=== PATIENT | female | born 1940 | race Caucasian/White ===

== ENCOUNTER 2023-12-10 12:11 | Inpatient (IN) ==
--- NOTE | 2023-12-10 12:37 | DR.H&P ---
H&P History & Physical for Day of: H&P Date: 12/10/23 Chief Complaint Chief Complaint: AMS, WEAKNESS Allergies Allergies Allergy/AdvReac Type Severity Reaction Status Date / Time No Known Drug Allergies Allergy Verified 10/24/23 17:50 History of Present Illness History of Present Illness: PT IS 83 WF, DIRECT ADMIT FROM DR JACKSON OFFICE WITH AMS CONFIRMED WITH HOME HEALTH AND PHYSICAL THERAPY. PT HAD INCREASED WEAKNESS, EMS CALLED 8 TIMES THIS PAST WEEK FOR ASSISTANCE WITH FALLS AND PT REFUSED ER EVALUATION. PT HAD LABS LAST WEEK AND URINALYSIS OBTAINED WITH C ULTURE RESULTS NOT AVAILABLE ON ADMISSION. PT HAS BEEN ON PO ATBX FOR UTI. PT HAS PMH OF CRF, HTN, OA, MDD AND NEUROPATHY. PT ADMITTED FOR TREATMENT AND EVALUATION OF ACUTE ILLNESS. Past Medical History Past Medical History: Dementia, Diabetes, GERD, Hypertension and Sleep Apnea Past Surgical History Surgical History: Appendectomy, Cholecystectomy, Hysterectomy and Joint Replacement Medications Home Medications: Home Medications Medication Instructions Recorded Confirmed Type baclofen 10 mg tablet 10 mg PO BID 10/24/23 10/24/23 History chlorthalidone 25 mg tablet 25 mg PO QDAY 10/24/23 10/24/23 History gabapentin 100 mg capsule 100 mg PO BID 10/24/23 10/24/23 History gabapentin 300 mg capsule 300 mg PO QPM 10/24/23 10/24/23 History hydralazine 25 mg tablet 25 mg PO BID 10/24/23 10/24/23 History levothyroxine 175 mcg tablet 175 mcg PO QDAY 10/24/23 10/24/23 History metoprolol tartrate 25 mg tablet 25 mg PO BID 10/24/23 10/24/23 History nystatin 100,000 unit/gram topical topical QID 10/24/23 History powder (Nystop) oxybutynin chloride 15 mg 15 mg PO QPM 10/24/23 10/24/23 History tablet,extended release 24 hr oxycodone-acetaminophen 10 mg-325 1 tab PO TID PRN pain 10/24/23 10/24/23 History mg tablet pantoprazole 40 mg tablet,delayed 40 mg PO BID 10/24/23 10/24/23 History release pravastatin 40 mg tablet 40 mg PO QPM 10/24/23 10/24/23 History quetiapine 25 mg tablet 12.5 mg PO QPM 10/24/23 10/24/23 History rivastigmine tartrate 1.5 mg 1.5 mg PO BID 10/24/23 10/24/23 History capsule sucralfate 1 gram tablet 1 g PO BID 10/24/23 10/24/23 History venlafaxine 75 mg capsule,extended 75 mg PO QDAY 10/24/23 10/24/23 History release 24 hr Review of Systems Constitutional: Weakness Eyes: No Symptoms Reported ENT: No Symptoms Reported Respiratory: Shortness of Breath Cardiovascular: Edema Gastrointestinal: No Symptoms Reported Genitourinary: Frequency and Incontinence Musculoskeletal: Back Pain Skin: Bruising Neurological: Weakness and Confusion Oriented: Person Eyes: Normal Throat: Dry Respiratory: RLL Diminished and LLL Diminished Cardiovascular: Edema Auscultation: Bowel Sounds: Normal Palpation: Normal Tenderness: Normal Skin: Decreased Turgur and Bruising Psychiatric: Anxiety and Agitation Mood Description: Anxious Affect: Anxious Speech Pattern: Inappropriate and Delayed Assessment/Plan (1) AMS (altered mental status): Narrative Support Text: ADMIT, CT HEAD ON ADMISSION IV HYDRATION WITH STRICT I&OS IV ROCEPHIN VERIFY HOME MEDICATIONS BC , UC ON ADMISSION PRN RESP THERAPY VERIFY HOME MEDICATIONS Status: Acute (2) UTI (urinary tract infection): Status: Acute (3) Fall: Status: Acute (4) Hypertension: Status: Acute
--- NOTE | 2023-12-10 14:31 | CT ---
EXAM:BRAIN W/O CONHISTORY:CONFUSION, WEAKNESS;COMPARISON:No relevant prior studies were available for comparison at the time of interpretation..TECHNIQUE:CT images were obtained. Multiplanar reconstructions were created on a separate workstation and used during interpretation. All CT scans at this facility is dose modulation, iterative reconstruction, and/or weight-based dosing as appropriate to reduce radiation to levels as low as reasonably achievable (ALARA). Postprocessing details, radiation dose, and contrast dose (if applicable) are recorded in the patient's medical record.FINDINGS:Acute findings: There is no intracranial hemorrhage. No mass effect. No intra-axial or extra-axial fluid collection. There is no mass. No tentorial, uncal, or tonsillar herniation.Brain volume and white matter: There is diffuse cortical atrophy. There is hypoattenuation in the supratentorial white matter consistent with chronic microvascular ischemic disease.Ventricles: No hydrocephalusMidline structures: Pituitary gland and corpus callosum are normal.Posterior fossa and skull base: Cerebellum and posterior fossa are within normal limits. Basal cisterns are not effaced.Sinuses and mastoids: Paranasal sinuses and mastoid air cells are predominantly clear.Globes and Orbits: Bilateral lens implants. Globes are intact. Bony orbits are intact. Extraocular muscles and retrobulbar fat appear normal.Skull and soft tissues: No depressed skull fracture. Calvarium appears intact. No scalp injury is identified.IMPRESSION:1. No acute intracranial abnormalityTHIS IS AN ELECTRONICALLY VERIFIED FINAL REPORT12/10/2023 2:27 PM - Electronically signed by Héctor Todd MD
--- NOTE | 2023-12-10 14:55 | EKG ---
Test Reason : weakness, confusion Blood Pressure : */* mmHG Vent. Rate : 47 BPM Atrial Rate : 47 BPM P-R Int : 116 ms QRS Dur : 130 ms QT Int : 424 ms P-R-T Axes : 0 -46 104 degrees QTc Int : 375 ms Sinus bradycardia Left axis deviation Left ventricular hypertrophy with QRS widening and repolarization abnormality ( R in aVL , Carrillo pr oduct ) Cannot rule out Septal infarct , age undetermined Abnormal ECG No previous ECGs available Confirmed by Arben Mills MD ([id number]) on 12/13/2023 7:47:27 AM Referred By: Confirmed By: Arben Mills MD
[2023-12-10 14:57] VITALS: BMI 34.7
[2023-12-10] MEDS: NS 1,000 ML IV 1,000 ML IV SCH (15:25)
[2023-12-10] MEDS: ROCEPHIN VIAL 1 GRAM 1 G in NS 100 ML IV 100 ML IV SCH (15:25)
[2023-12-10 15:32] LABS: BASOPHILS # (AUTO) 0.1 X10^3/uL (0.0-0.1); BASOPHILS % (AUTO) 1.1 % (0.2-1.0); EOSINOPHILS # (AUTO) 0.3 x10^3/uL (0.0-0.2); EOSINOPHILS % (AUTO) 5.2 % (0.9-2.9); HEMATOCRIT 32.5 % (36.0-47.0); HEMOGLOBIN 10.5 g/dL (12.0-16.0); LYMPHOCYTES # (AUTO) 1.1 X10^3/uL (1.3-2.9); LYMPHOCYTES % (AUTO) 17.5 % (21.0-51.0); MEAN CORPUSCULAR HGB CONC 32.4 g/dL (33.0-35.0); MEAN CORPUSCULAR VOLUME 89.5 fL (80.0-100.0); MEAN PLATELET VOLUME 8.8 fL (7.4-11.0); MONOCYTES # (AUTO) 0.7 x10^3/uL (0.3-0.8); MONOCYTES % (AUTO) 11.6 % (0.0-13.0); NEUTROPHILS # (AUTO) 3.9 x10^3/uL (2.2-4.8); NEUTROPHILS % (AUTO) 64.6 % (42.0-75.0); PLATELET COUNT 246 X10^3/uL (150.0-450.0); RED BLOOD COUNT 3.63 X10^6/uL (3.5-5.4); RED CELL DISTRIBUTION WIDTH 14.4 % (11.6-16.5); WHITE BLOOD COUNT 6.1 X10^3/uL (3.6-10.0)
[2023-12-10 15:41] LABS: ALBUMIN 2.4 g/dL (3.4-5.0); CALCIUM 8.5 mg/dL (8.5-10.1); CARBON DIOXIDE 31.7 mmol/L (21-32); COR CA(FOR HYPOALB) 9.8 mg/dL (8.5-10.1); CREATININE 2.01 mg/dL (0.55-1.02); POTASSIUM 4.4 mmol/L (3.5-5.1); TOTAL PROTEIN 7.2 g/dL (6.4-8.2)
[2023-12-10 16:35] LABS: BILIRUBIN,URINE NEGATIVE (NEGATIVE); BLOOD/HEMOGLOBIN,URINE 4+ (NEGATIVE); GLUCOSE, URINE NEGATIVE (NEGATIVE); KETONES,URINE NEGATIVE (NEGATIVE); LEUKOCYTE ESTERASE ,URINE 3+ (NEGATIVE); NITRITES,URINE NEGATIVE (NEGATIVE); PROTEIN,URINE 2+ (NEGATIVE); UROBILINOGEN,URINE NORMAL (NORMAL)
[2023-12-10 16:50] LABS: COLOR,URINE YELLOW (YELLOW)
[2023-12-10 16:51] LABS: APPEARANCE,URINE HAZY (CLEAR); BACTERIA,URINE 4+ /HPF (NEGATIVE); RBC,URINE TNTC /HPF (0-3); SQUAMOUS EPITHELIAL CELL,UR FEW /HPF (NEGATIVE)
[2023-12-11 06:09] LABS: BASOPHILS % (AUTO) 0.8 % (0.2-1.0); EOSINOPHILS # (AUTO) 0.3 x10^3/uL (0.0-0.2); EOSINOPHILS % (AUTO) 5.3 % (0.9-2.9); HEMATOCRIT 30.3 % (36.0-47.0); HEMOGLOBIN 9.7 g/dL (12.0-16.0); LYMPHOCYTES # (AUTO) 0.9 X10^3/uL (1.3-2.9); LYMPHOCYTES % (AUTO) 16.8 % (21.0-51.0); MEAN CORPUSCULAR HEMOGLOBIN 28.9 pg (27.0-34.0); MEAN CORPUSCULAR HGB CONC 32.2 g/dL (33.0-35.0); MEAN CORPUSCULAR VOLUME 89.9 fL (80.0-100.0); MEAN PLATELET VOLUME 8.8 fL (7.4-11.0); MONOCYTES # (AUTO) 0.6 x10^3/uL (0.3-0.8); MONOCYTES % (AUTO) 11.6 % (0.0-13.0); NEUTROPHILS # (AUTO) 3.5 x10^3/uL (2.2-4.8); NEUTROPHILS % (AUTO) 65.5 % (42.0-75.0); PLATELET COUNT 201 X10^3/uL (150.0-450.0); RED BLOOD COUNT 3.37 X10^6/uL (3.5-5.4); RED CELL DISTRIBUTION WIDTH 14.3 % (11.6-16.5); WHITE BLOOD COUNT 5.3 X10^3/uL (3.6-10.0)
--- NOTE | 2023-12-11 06:21 | RAD ---
EXAM: CHEST, 1 VIEW HISTORY: weakness, sob on exertion; COMPARISON: None. FINDINGS: SUPPORT DEVICES: None. HEART/MEDIASTINUM: Moderate cardiomegaly with aortic calcification. LUNGS: Nonspecific bilateral interstitial prominence without an area of consolidation. No significan t pleural effusion. No pneumothorax. ADDITIONAL FINDINGS: None. IMPRESSION: 1. Moderate cardiomegaly. 2. Nonspecific bilateral interstitial prominence, favored to represent chronic lung disease. THIS IS AN ELECTRONICALLY VERIFIED FINAL REPORT 12/11/2023 6:18 AM - Electronically signed by Nikhil Mars MD
[2023-12-11 06:22] LABS: ALANINE AMINOTRANSFERASE 8 Units/L (12-78); ALBUMIN 2.2 g/dL (3.4-5.0); ALKALINE PHOSPHATASE 76 Units/L (46-116); ASPARTATE AMINO TRANSFERASE 12 Units/L (15-37); BLOOD UREA NITROGEN 67 mg/dL (7-18); CALCIUM 8.1 mg/dL (8.5-10.1); CHLORIDE 104 mmol/L (98-107); COR CA(FOR HYPOALB) 9.5 mg/dL (8.5-10.1); CREATININE 1.65 mg/dL (0.55-1.02); GLUCOSE 103 mg/dL (65-99); SODIUM 140 mmol/L (136-145); TOTAL PROTEIN 6.1 g/dL (6.4-8.2); eGFR NON BLACK RACES 32 (>60)
--- NOTE | 2023-12-11 11:12 | PCM.PROG ---
Progress Note Progress Note for Day of Date of Exam: 12/11/23 Subjective Subjective: Patient seen at bedside, no acute events overnight. She is feeling a lot better today. She is sitting up in the chair. She was admitted for recurrent falls, AMS and UTI. She was also noted to be bradycardia on admission, HR 40s, metoprolol tartare was held. Denies chest pain. She is currently on IV fluids and Rocephin. Labs/imaging reviewed -Hgb 9.7 BUN/Cr: 67/1.65 -Urine Cx pending -CT-brain: no acute process -CXR: chronic lung disease, moderate cardiomegaly Plan: continue hydration, replace electrolytes as needed. Continue IV Rocephin, follow urine Cx. Continue telemetry. Resume home medications, hold metoprolol tartrate. HR is in the 50s now. PT/OT as tolerated. Monitor AM labs/imaging. Fall precautions. Past Medical Family Social History Allergies: Allergies No Known Drug Allergies Allergy (Verified 12/10/23 14:27) dymaox Allergy (Uncoded 12/10/23 14:28) Vital Signs and I&O's Vital Signs: Vital Signs Temperature 97.8 F Temperature 98.5 F Temperature 98.5 F Pulse Rate [Apical] 46 Pulse Rate [Apical] 43 Pulse Rate [Apical] 43 Respiratory Rate 18 Respiratory Rate 18 Respiratory Rate 18 Blood Pressure [Right Arm] 135/57 Blood Pressure [Right Arm] 140/51 Blood Pressure [Right Arm] 140/51 O2 Sat by Pulse Oximetry 97 O2 Sat by Pulse Oximetry 100 O2 Sat by Pulse Oximetry 100 Intake and Output: Intake & Output 12/08/23 12/09/23 12/10/23 12/11/23 23:59 23:59 23:59 23:59 Intake Total 1440 / 1440 680 / 680 Output Total 0 / 0 Balance 1440 / 1440 680 / 680 Physical Exam Oriented: Person Eyes: Normal Throat: Normal Respiratory: Generalized and Diminished Cardiovascular: Edema Auscultation: Bowel Sounds: Normal Palpation: Normal Tenderness: Normal Skin: Decreased Turgur, Tender, Bruising (large bruise noted on lower back ) and Ecchymosis Psychiatric: Normal Mood Description: Calm Affect: Normal Speech Pattern: Clear and Appropriate Laboratory and Diagnostics 12/11/23 05:52 12/11/23 05:52 Labs: 12/10/23 16:00 Urine,Clean Catch Urine Culture - Preliminary Laboratory WBC 5.3 X10^3/uL (3.6-10.0) 12/11/23 05:52 RBC 3.37 X10^6/uL (3.5-5.4) L 12/11/23 05:52 Hgb 9.7 g/dL (12.0-16.0) L 12/11/23 05:52 Hct 30.3 % (36.0-47.0) L 12/11/23 05:52 MCV 89.9 fL (80.0-100.0) 12/11/23 05:52 MCH 28.9 pg (27.0-34.0) 12/11/23 05:52 MCHC 32.2 g/dL (33.0-35.0) L 12/11/23 05:52 RDW 14.3 % (11.6-16.5) 12/11/23 05:52 Plt Count 201 X10^3/uL (150.0-450.0) 12/11/23 05:52 MPV 8.8 fL (7.4-11.0) 12/11/23 05:52 Neut % (Auto) 65.5 % (42.0-75.0) 12/11/23 05:52 Lymph % (Auto) 16.8 % (21.0-51.0) L 12/11/23 05:52 [place] % (Auto) 11.6 % (0.0-13.0) 12/11/23 05:52 Eos % (Auto) 5.3 % (0.9-2.9) H 12/11/23 05:52 Baso % (Auto) 0.8 % (0.2-1.0) 12/11/23 05:52 Neut # (Auto) 3.5 x10^3/uL (2.2-4.8) 12/11/23 05:52 Lymph # (Auto) 0.9 X10^3/uL (1.3-2.9) L 12/11/23 05:52 [place] # (Auto) 0.6 x10^3/uL (0.3-0.8) 12/11/23 05:52 Eos # (Auto) 0.3 x10^3/uL (0.0-0.2) H 12/11/23 05:52 Baso # (Auto) 0.0 X10^3/uL (0.0-0.1) 12/11/23 05:52 Absolute Nucleated RBC 0.1 /100WBC 12/11/23 05:52 Sodium 140 mmol/L (136-145) 12/11/23 05:52 Corrected Sodium TNP 12/11/23 05:52 Potassium 5.0 mmol/L (3.5-5.1) 12/11/23 05:52 Chloride 104 mmol/L (98-107) 12/11/23 05:52 Carbon Dioxide 31.0 mmol/L (21-32) 12/11/23 05:52 BUN 67 mg/dL (7-18) H 12/11/23 05:52 Creatinine 1.65 mg/dL (0.55-1.02) H 12/11/23 05:52 Est GFR (MDRD) Af Amer 38 (>60) L 12/11/23 05:52 Est GFR (MDRD) Non-Af 32 (>60) L 12/11/23 05:52 Glucose 103 mg/dL (65-99) H 12/11/23 05:52 Calcium 8.1 mg/dL (8.5-10.1) L 12/11/23 05:52 Corrected Calcium 9.5 mg/dL (8.5-10.1) 12/11/23 05:52 Magnesium 3.0 mg/dL (2.0-2.9) H 12/10/23 14:59 Total Bilirubin 0.20 mg/dL (0.2-1.0) 12/11/23 05:52 AST 12 Units/L (15-37) L 12/11/23 05:52 ALT 8 Units/L (12-78) L 12/11/23 05:52 Alkaline Phosphatase 76 Units/L (46-116) 12/11/23 05:52 Creatine Kinase 35 Units/L (26-192) 12/10/23 14:59 Troponin I High Sens 16.0 ng/L (4.0-60.0) 12/10/23 14:59 Total Protein 6.1 g/dL (6.4-8.2) L 12/11/23 05:52 Albumin 2.2 g/dL (3.4-5.0) L 12/11/23 05:52 Globulin 3.9 g/dL (2.5-4.5) 12/11/23 05:52 Albumin/Globulin Ratio 0.6 Ratio (1.1-2.1) L 12/11/23 05:52 TSH 3rd Generation 1.929 uIU/mL (0.358-3.74) 12/10/23 16:40 Specimen Type Catherized urine 12/10/23 16:00 Urine Color Yellow (YELLOW) 12/10/23 16:00 Urine Appearance Hazy (CLEAR) 12/10/23 16:00 Urine pH 5.0 (5.0 - 8.0) 12/10/23 16:00 Ur Specific [place] 1.015 (1.000-1.030) 12/10/23 16:00 Urine Protein 2+ (NEGATIVE) 12/10/23 16:00 Urine Glucose (UA) Negative (NEGATIVE) 12/10/23 16:00 Urine Ketones Negative (NEGATIVE) 12/10/23 16:00 Urine Blood 4+ (NEGATIVE) 12/10/23 16:00 Urine Nitrite Negative (NEGATIVE) 12/10/23 16:00 Urine Bilirubin Negative (NEGATIVE) 12/10/23 16:00 Urine Urobilinogen Normal (NORMAL) 12/10/23 16:00 Ur Leukocyte Esterase 3+ (NEGATIVE) 12/10/23 16:00 Urine RBC Tntc /HPF (0-3) A 12/10/23 16:00 Urine WBC Tntc /HPF (0-5) A 12/10/23 16:00 Ur Squamous Epith Cells Few /HPF (NEGATIVE) 12/10/23 16:00 Urine Bacteria 4+ /HPF (NEGATIVE) 12/10/23 16:00 Ur Culture Indicated? Yes/culture set up 12/10/23 16:00 Plan (1) AMS (altered mental status): Status: Acute Qualifiers: Altered mental status type: unspecified Qualified Code(s): R41.82 - Altered mental status, unspecified (2) UTI (urinary tract infection): Status: Acute Qualifiers: Urinary tract infection type: acute cystitis Hematuria presence: without hematuria Qualified Code(s): N30.00 - Acute cystitis without hematuria (3) Bradycardia: Status: Acute (4) Fall: Status: Acute Qualifiers: Encounter type: subsequent encounter Qualified Code(s): W19.XXXD - Unspecified fall, subsequent encounter (5) Hypertension: Status: Acute Qualifiers: Hypertension type: primary hypertension Qualified Code(s): I10 - Essential (primary) hypertension (6) EUGENE (acute kidney injury): Status: Acute (7) Anemia: Status: Acute Qualifiers: Anemia type: unspecified type Qualified Code(s): D64.9 - Anemia, unspecified
[2023-12-11] MEDS: EXELON PO SCH (13:42)
[2023-12-11] MEDS: PERCOCET TAB 5/325 MG PO SCH (13:45)
[2023-12-11] MEDS ORDERED: PATIENT'S HOME MEDICATION (Oxycodone-Acetaminophen 10-325 mg tablet) PO SCH ×2 (14:00)
[2023-12-11] MEDS ORDERED: PEPCID TAB 20 MG PO SCH (21:00)
[2023-12-11] MEDS: NEURONTIN CAP 300 MG PO SCH (21:33)
[2023-12-11] MEDS: MYSOLINE PO SCH (21:33)
[2023-12-11] MEDS: PRAVACHOL PO SCH (21:33)
[2023-12-11] MEDS: SEROquel TAB 25 mg PO SCH (21:34)
[2023-12-12 05:09] LABS: BASOPHILS % (AUTO) 0.8 % (0.2-1.0); EOSINOPHILS # (AUTO) 0.3 x10^3/uL (0.0-0.2); EOSINOPHILS % (AUTO) 6.2 % (0.9-2.9); HEMATOCRIT 32.4 % (36.0-47.0); HEMOGLOBIN 10.2 g/dL (12.0-16.0); LYMPHOCYTES # (AUTO) 0.9 X10^3/uL (1.3-2.9); LYMPHOCYTES % (AUTO) 17.7 % (21.0-51.0); MEAN CORPUSCULAR HEMOGLOBIN 28.5 pg (27.0-34.0); MEAN CORPUSCULAR HGB CONC 31.6 g/dL (33.0-35.0); MEAN CORPUSCULAR VOLUME 90.3 fL (80.0-100.0); MEAN PLATELET VOLUME 8.7 fL (7.4-11.0); MONOCYTES # (AUTO) 0.7 x10^3/uL (0.3-0.8); MONOCYTES % (AUTO) 12.8 % (0.0-13.0); NEUTROPHILS # (AUTO) 3.3 x10^3/uL (2.2-4.8); NEUTROPHILS % (AUTO) 62.5 % (42.0-75.0); PLATELET COUNT 203 X10^3/uL (150.0-450.0); RED BLOOD COUNT 3.59 X10^6/uL (3.5-5.4); RED CELL DISTRIBUTION WIDTH 14.5 % (11.6-16.5); WHITE BLOOD COUNT 5.3 X10^3/uL (3.6-10.0)
[2023-12-12 05:26] LABS: ALANINE AMINOTRANSFERASE 8 Units/L (12-78); ALBUMIN 2.1 g/dL (3.4-5.0); ALKALINE PHOSPHATASE 99 Units/L (46-116); ASPARTATE AMINO TRANSFERASE 14 Units/L (15-37); BLOOD UREA NITROGEN 51 mg/dL (7-18); CALCIUM 8.3 mg/dL (8.5-10.1); CARBON DIOXIDE 30.5 mmol/L (21-32); CHLORIDE 106 mmol/L (98-107); COR CA(FOR HYPOALB) 9.8 mg/dL (8.5-10.1); CREATININE 1.33 mg/dL (0.55-1.02); GLUCOSE 101 mg/dL (65-99); POTASSIUM 4.4 mmol/L (3.5-5.1); SODIUM 141 mmol/L (136-145); TOTAL PROTEIN 6.8 g/dL (6.4-8.2); eGFR NON BLACK RACES 41 (>60)
[2023-12-12] MEDS: NORVASC TAB 10 MG PO SCH (09:01)
[2023-12-12] MEDS: EFFEXOR XR 75 MG CAP 24-HR PO SCH (09:02)
[2023-12-12] MEDS: PEPCID TAB 20 MG PO SCH (09:03)
[2023-12-12] MEDS: SYNTHROID 175 mcg TAB PO SCH (09:03)
--- NOTE | 2023-12-12 10:58 | PCM.PROG ---
Progress Note Progress Note for Day of Date of Exam: 12/12/23 Subjective Subjective: Patient seen at bedside, no acute events overnight. She is feeling better today. She is sitting up in the chair. She was admitted for recurrent falls, AMS and UTI. Urine culture shows E.coli. Patient's BP was elevated this morning. Labs/imaging reviewed -Hgb 10.2 BUN/Cr: 51/1.33 -Urine Cx E.coli -CT-brain: no acute process -CXR: chronic lung disease, moderate cardiomegaly Plan: continue hydration, replace electrolytes as needed. Continue IV Rocephin. Continue telemetry. Continue home medications, restart hydralazine. Hold metoprolol tartrate due to bradycardia. PT/OT as tolerated. Monitor AM labs/imaging. Fall precautions. Past Medical Family Social History Allergies: Allergies No Known Drug Allergies Allergy (Verified 12/10/23 14:27) dymaox Allergy (Uncoded 12/10/23 14:28) Vital Signs and I&O's Vital Signs: Vital Signs Temperature 97.4 F Temperature 97.5 F Pulse Rate [Apical] 45 Pulse Rate [Apical] 43 Respiratory Rate 18 Respiratory Rate 18 Respiratory Rate 18 Respiratory Rate 18 Blood Pressure [Right Arm] 165/85 Blood Pressure [Left Arm] 195/80 O2 Sat by Pulse Oximetry 100 O2 Sat by Pulse Oximetry 97 Intake and Output: Intake & Output 12/09/23 12/10/23 12/11/23 12/12/23 23:59 23:59 23:59 23:59 Intake Total 1440 / 1440 2018 562 / 562 Output Total 0 / 0 Balance 1440 / 1440 2018 562 / 562 Physical Exam Oriented: Person Eyes: Normal Throat: Normal Respiratory: Generalized and Diminished Cardiovascular: Edema Auscultation: Bowel Sounds: Normal Palpation: Normal Tenderness: Normal Skin: Decreased Turgur, Tender, Bruising (large bruise noted on lower back ) and Ecchymosis Psychiatric: Normal Mood Description: Calm Affect: Normal Speech Pattern: Clear and Appropriate Laboratory and Diagnostics 12/12/23 04:47 12/12/23 04:47 Labs: 12/10/23 15:10 Blood Blood Culture - Preliminary 12/10/23 14:59 Blood Blood Culture - Preliminary 12/10/23 16:00 Urine,Clean Catch Urine Culture - Final Escherichia Coli Laboratory WBC 5.3 X10^3/uL (3.6-10.0) 12/12/23 04:47 RBC 3.59 X10^6/uL (3.5-5.4) 12/12/23 04:47 Hgb 10.2 g/dL (12.0-16.0) L 12/12/23 04:47 Hct 32.4 % (36.0-47.0) L 12/12/23 04:47 MCV 90.3 fL (80.0-100.0) 12/12/23 04:47 MCH 28.5 pg (27.0-34.0) 12/12/23 04:47 MCHC 31.6 g/dL (33.0-35.0) L 12/12/23 04:47 RDW 14.5 % (11.6-16.5) 12/12/23 04:47 Plt Count 203 X10^3/uL (150.0-450.0) 12/12/23 04:47 MPV 8.7 fL (7.4-11.0) 12/12/23 04:47 Neut % (Auto) 62.5 % (42.0-75.0) 12/12/23 04:47 Lymph % (Auto) 17.7 % (21.0-51.0) L 12/12/23 04:47 [place] % (Auto) 12.8 % (0.0-13.0) 12/12/23 04:47 Eos % (Auto) 6.2 % (0.9-2.9) H 12/12/23 04:47 Baso % (Auto) 0.8 % (0.2-1.0) 12/12/23 04:47 Neut # (Auto) 3.3 x10^3/uL (2.2-4.8) 12/12/23 04:47 Lymph # (Auto) 0.9 X10^3/uL (1.3-2.9) L 12/12/23 04:47 [place] # (Auto) 0.7 x10^3/uL (0.3-0.8) 12/12/23 04:47 Eos # (Auto) 0.3 x10^3/uL (0.0-0.2) H 12/12/23 04:47 Baso # (Auto) 0.0 X10^3/uL (0.0-0.1) 12/12/23 04:47 Absolute Nucleated RBC 0.0 /100WBC 12/12/23 04:47 Sodium 141 mmol/L (136-145) 12/12/23 04:47 Corrected Sodium TNP 12/12/23 04:47 Potassium 4.4 mmol/L (3.5-5.1) 12/12/23 04:47 Chloride 106 mmol/L (98-107) 12/12/23 04:47 Carbon Dioxide 30.5 mmol/L (21-32) 12/12/23 04:47 BUN 51 mg/dL (7-18) H 12/12/23 04:47 Creatinine 1.33 mg/dL (0.55-1.02) H 12/12/23 04:47 Est GFR (MDRD) Af Amer 49 (>60) L 12/12/23 04:47 Est GFR (MDRD) Non-Af 41 (>60) L 12/12/23 04:47 Glucose 101 mg/dL (65-99) H 12/12/23 04:47 Calcium 8.3 mg/dL (8.5-10.1) L 12/12/23 04:47 Corrected Calcium 9.8 mg/dL (8.5-10.1) 12/12/23 04:47 Magnesium 2.8 mg/dL (2.0-2.9) 12/11/23 12:13 Total Bilirubin 0.10 mg/dL (0.2-1.0) L 12/12/23 04:47 AST 14 Units/L (15-37) L 12/12/23 04:47 ALT 8 Units/L (12-78) L 12/12/23 04:47 Alkaline Phosphatase 99 Units/L (46-116) 12/12/23 04:47 Creatine Kinase 35 Units/L (26-192) 12/10/23 14:59 Troponin I High Sens 16.0 ng/L (4.0-60.0) 12/10/23 14:59 Total Protein 6.8 g/dL (6.4-8.2) 12/12/23 04:47 Albumin 2.1 g/dL (3.4-5.0) L 12/12/23 04:47 Globulin 4.7 g/dL (2.5-4.5) H 12/12/23 04:47 Albumin/Globulin Ratio 0.4 Ratio (1.1-2.1) L 12/12/23 04:47 TSH 3rd Generation 1.929 uIU/mL (0.358-3.74) 12/10/23 16:40 Specimen Type Catherized urine 12/10/23 16:00 Urine Color Yellow (YELLOW) 12/10/23 16:00 Urine Appearance Hazy (CLEAR) 12/10/23 16:00 Urine pH 5.0 (5.0 - 8.0) 12/10/23 16:00 Ur Specific [place] 1.015 (1.000-1.030) 12/10/23 16:00 Urine Protein 2+ (NEGATIVE) 12/10/23 16:00 Urine Glucose (UA) Negative (NEGATIVE) 12/10/23 16:00 Urine Ketones Negative (NEGATIVE) 12/10/23 16:00 Urine Blood 4+ (NEGATIVE) 12/10/23 16:00 Urine Nitrite Negative (NEGATIVE) 12/10/23 16:00 Urine Bilirubin Negative (NEGATIVE) 12/10/23 16:00 Urine Urobilinogen Normal (NORMAL) 12/10/23 16:00 Ur Leukocyte Esterase 3+ (NEGATIVE) 12/10/23 16:00 Urine RBC Tntc /HPF (0-3) A 12/10/23 16:00 Urine WBC Tntc /HPF (0-5) A 12/10/23 16:00 Ur Squamous Epith Cells Few /HPF (NEGATIVE) 12/10/23 16:00 Urine Bacteria 4+ /HPF (NEGATIVE) 12/10/23 16:00 Ur Culture Indicated? Yes/culture set up 12/10/23 16:00 Plan (1) AMS (altered mental status): Status: Acute Qualifiers: Altered mental status type: unspecified Qualified Code(s): R41.82 - Altered mental status, unspecified (2) UTI (urinary tract infection): Status: Acute Qualifiers: Urinary tract infection type: acute cystitis Hematuria presence: without hematuria Qualified Code(s): N30.00 - Acute cystitis without hematuria (3) Bradycardia: Status: Acute (4) Fall: Status: Acute Qualifiers: Encounter type: subsequent encounter Qualified Code(s): W19.XXXD - Unspecified fall, subsequent encounter (5) Hypertension: Status: Acute Qualifiers: Hypertension type: primary hypertension Qualified Code(s): I10 - Essential (primary) hypertension (6) EUGENE (acute kidney injury): Status: Acute (7) Anemia: Status: Acute Qualifiers: Anemia type: unspecified type Qualified Code(s): D64.9 - Anemia, unspecified
[2023-12-12] MEDS: APRESOLINE TAB 25 MG PO SCH (11:05)
[2023-12-12] MEDS: COLACE CAP 100 MG PO SCH (21:09)
[2023-12-12] MEDS: MILK OF MAGNESIA PO SCH (21:10)
[2023-12-13 06:12] LABS: EOSINOPHILS # (AUTO) 0.3 x10^3/uL (0.0-0.2); EOSINOPHILS % (AUTO) 6.5 % (0.9-2.9); HEMATOCRIT 30.5 % (36.0-47.0); HEMOGLOBIN 9.7 g/dL (12.0-16.0); LYMPHOCYTES # (AUTO) 0.9 X10^3/uL (1.3-2.9); LYMPHOCYTES % (AUTO) 17.4 % (21.0-51.0); MEAN CORPUSCULAR HEMOGLOBIN 28.6 pg (27.0-34.0); MEAN CORPUSCULAR HGB CONC 31.8 g/dL (33.0-35.0); MEAN PLATELET VOLUME 8.7 fL (7.4-11.0); MONOCYTES # (AUTO) 0.6 x10^3/uL (0.3-0.8); MONOCYTES % (AUTO) 12.6 % (0.0-13.0); NEUTROPHILS # (AUTO) 3.1 x10^3/uL (2.2-4.8); NEUTROPHILS % (AUTO) 62.5 % (42.0-75.0); PLATELET COUNT 204 X10^3/uL (150.0-450.0); RED BLOOD COUNT 3.39 X10^6/uL (3.5-5.4); RED CELL DISTRIBUTION WIDTH 14.5 % (11.6-16.5); WHITE BLOOD COUNT 4.9 X10^3/uL (3.6-10.0)
[2023-12-13 06:45] LABS: ALANINE AMINOTRANSFERASE 7 Units/L (12-78); ALBUMIN 1.9 g/dL (3.4-5.0); ALKALINE PHOSPHATASE 80 Units/L (46-116); ASPARTATE AMINO TRANSFERASE 16 Units/L (15-37); BLOOD UREA NITROGEN 38 mg/dL (7-18); CALCIUM 8.3 mg/dL (8.5-10.1); CARBON DIOXIDE 27.8 mmol/L (21-32); CHLORIDE 110 mmol/L (98-107); CREATININE 1.16 mg/dL (0.55-1.02); GLUCOSE 87 mg/dL (65-99); POTASSIUM 4.8 mmol/L (3.5-5.1); SODIUM 144 mmol/L (136-145); TOTAL PROTEIN 6.3 g/dL (6.4-8.2); eGFR NON BLACK RACES 48 (>60)
[2023-12-13] MEDS: STERILE WATER IRRIGATION IR ONE (07:38)
[2023-12-13] MEDS: ZOFRAN INJ 4 MG VIAL IVP PRN (14:08)
--- NOTE | 2023-12-13 17:02 | CT ---
EXAM:ABDOMEN/PELVIS W/O CONHISTORY:ABD HEMATOMA;COMPARISON:NoneTECHNIQUE:Multip le CT axial images of the abdomen and pelvis were obtained without IV contrast. Coronal and sagittal images were reconstructed. Dose reduction techniques included Automated Exposure Control (AEC) and adjustment of mA and kV.FINDINGS:The patient has anasarca with generalized edema. This is manifested as increased density in the subcutaneous fat and the intra-abdominal fat. This is associated with very small right pleural effusion.There is a mass in the posterolateral right body wall near the lower ribs within the subcutaneous tissue. This measures about 10 x 4 x 3 cm. Hounsfield units measure between 10 and 15. The finding is nonspecific and could be seroma, old hematoma, or abscess.Cardiomegaly is present. Atherosclerotic calcification is present in the coronary arteries. Lung bases are clear.The liver is normal in size and configuration. Surgical clips are present in the gallbladder fossa from a cholecystectomy. The spleen is normal in size and shape.The adrenal glands are normal. The pancreas is normal.No abnormal calcifications are present in the kidneys, ureters, or urinary bladder. The kidneys have normal size and shape. There is no hydronephrosis or significant perirenal edema. The bladder is mostly contracted. It has no wall thickening or perivesical edema.The bowel is not dilated. There is no wall thickening in the bowel or edema around the bowel. A normal appendix is not identified. But there is no inflammation around the cecum or at the expected location of the appendix.Degenerative changes are present in the spine. The bones are demineralized.IMPRESSION:1. (10 cm) right body wall fluid collection2. Anasarca3. Cardiomegaly with CADTHIS IS AN ELECTRONICALLY VERIFIED FINAL REPORT12/13/2023 4:58 PM - Electronically signed by Eren Serrato MD
--- NOTE | 2023-12-13 18:15 | EKG ---
Test Reason : Chest pain Blood Pressure : */* mmHG Vent. Rate : 96 BPM Atrial Rate : 96 BPM P-R Int : 176 ms QRS Dur : 116 ms QT Int : 350 ms P-R-T Axes : 26 -54 111 degrees QTc Int : 442 ms Normal sinus rhythm Left axis deviation Left ventricular hypertrophy with QRS widening and repolarization abnormality ( R in aVL , Carrillo pr oduct ) Anteroseptal infarct (cited on or before 10-DEC-2023) Abnormal ECG When compared with ECG of 10-DEC-2023 14:08, heart rate up/ Confirmed by Arben Mills MD ([id number]) on 12/14/2023 7:39:10 AM Referred By: Confirmed By: Arben Mills MD
[2023-12-13] MEDS: LOPRESSOR TAB 25 MG PO SCH (21:09)
--- NOTE | 2023-12-14 06:21 | RAD ---
EXAM: Portable chest HISTORY: Shortness of breath COMPARISON: 12/10/2023 FINDINGS: Heart is enlarged. No congestive heart failure is noted. Aorta is calcified. Lungs mildly hypoin flated but free of acute infiltrates. Mild interstitial lung changes are present likely chronic. No pleural effusions are identified. Bony thorax is unremarkable with the exception of bilateral gleno humeral joint degenerative joint disease. IMPRESSION: Mild cardiomegaly without congestive heart failure No acute alveolar infiltrates or areas of consolidation Mild interstitial lung changes likely chronic THIS IS AN ELECTRONICALLY VERIFIED FINAL REPORT 12/14/2023 6:17 AM - Electronically signed by Sheldon Pablo MD
[2023-12-14 06:32] LABS: BASOPHILS # (AUTO) 0.1 X10^3/uL (0.0-0.1); BASOPHILS % (AUTO) 0.9 % (0.2-1.0); EOSINOPHILS # (AUTO) 0.3 x10^3/uL (0.0-0.2); EOSINOPHILS % (AUTO) 5.7 % (0.9-2.9); HEMATOCRIT 28.3 % (36.0-47.0); HEMOGLOBIN 9.1 g/dL (12.0-16.0); LYMPHOCYTES # (AUTO) 1.2 X10^3/uL (1.3-2.9); LYMPHOCYTES % (AUTO) 21.6 % (21.0-51.0); MEAN CORPUSCULAR HGB CONC 32.2 g/dL (33.0-35.0); MEAN CORPUSCULAR VOLUME 90.1 fL (80.0-100.0); MEAN PLATELET VOLUME 8.3 fL (7.4-11.0); MONOCYTES # (AUTO) 0.6 x10^3/uL (0.3-0.8); MONOCYTES % (AUTO) 10.7 % (0.0-13.0); NEUTROPHILS # (AUTO) 3.4 x10^3/uL (2.2-4.8); NEUTROPHILS % (AUTO) 61.1 % (42.0-75.0); PLATELET COUNT 186 X10^3/uL (150.0-450.0); RED BLOOD COUNT 3.14 X10^6/uL (3.5-5.4); RED CELL DISTRIBUTION WIDTH 14.2 % (11.6-16.5); WHITE BLOOD COUNT 5.6 X10^3/uL (3.6-10.0)
[2023-12-14 06:48] LABS: ALANINE AMINOTRANSFERASE 9 Units/L (12-78); ALKALINE PHOSPHATASE 75 Units/L (46-116); ASPARTATE AMINO TRANSFERASE 15 Units/L (15-37); BLOOD UREA NITROGEN 25 mg/dL (7-18); CALCIUM 8.3 mg/dL (8.5-10.1); CARBON DIOXIDE 29.5 mmol/L (21-32); CHLORIDE 109 mmol/L (98-107); COR CA(FOR HYPOALB) 9.9 mg/dL (8.5-10.1); GLUCOSE 86 mg/dL (65-99); POTASSIUM 4.8 mmol/L (3.5-5.1); SODIUM 144 mmol/L (136-145); TOTAL PROTEIN 6.3 g/dL (6.4-8.2); eGFR NON BLACK RACES 51 (>60)
[2023-12-14] MEDS: LOPRESSOR TAB 25 MG PO SCH (09:11)
--- NOTE | 2023-12-14 09:13 | EKG ---
Test Reason : sinus tach Blood Pressure : */* mmHG Vent. Rate : 56 BPM Atrial Rate : 56 BPM P-R Int : 158 ms QRS Dur : 124 ms QT Int : 434 ms P-R-T Axes : * -50 74 degrees QTc Int : 418 ms Sinus bradycardia with premature supraventricular complexes Left axis deviation Left bundle branch block Abnormal ECG When compared with ECG of 13-DEC-2023 18:02, premature supraventricular complexes are now present Vent. rate has decreased BY 40 BPM Left bundle branch block is now present Confirmed by Arben Mills MD ([id number]) on 12/14/2023 12:25:17 PM Referred By: Confirmed By: Arben Mills MD
--- NOTE | 2023-12-14 18:04 | PCM.PROG ---
Progress Note Progress Note for Day of Date of Exam: 12/13/23 Subjective Subjective: PATIENT IS AN 83 YEAR OLD WHITE FEMALE WHO WAS A DIRECT ADMIT ON 12/10/23 FOR RECURRENT FALLS, AMS AND UTI. UPON ADMISSION, WE OBTAINED URINE CULTURES- POSITIVE FOR ECOLI, CT BRAIN- NO ACUTE PROCESS, CXR- CHRONIC LUNG DISEASE AND MODERATE CARDIOMEGALY. ADMISSION LABS: WBC 6.1, HGB 10.5, BUN 69 /CREATININE 2.01. OVER THE WEEKEND, PT DID HAVE SOME ELEVATED BLOOD PRESSURE READINGS AND BRADYCARDIA. SHE WAS RESTARTED ON HYDRALAZINE AND METOPROLOL WAS DISCONTINUED. ASSESSMENT THIS MORNING REVEALED A RIGHT ABDOMINAL HEMATOMA. PT DENIES TRAUMA/FALLS SINCE ADMISSION. PT ALSO COMPLAINS OF SHORTNESS OF BREATH. SHE DENIES CHEST PAIN, DIZZINESS, BLURRED VISION. AM VITALS: 178/71-77-98.2-92% ON 2L. MORNING LABS: HGB 9.7, WBC 4.9, BUN 38/CREATININE 1.16. Past Medical Family Social History Allergies: Allergies No Known Drug Allergies Allergy (Verified 12/10/23 14:27) dymaox Allergy (Uncoded 12/10/23 14:28) Vital Signs and I&O's Vital Signs: Vital Signs Temperature 97.9 F Temperature 98.2 F Pulse Rate [Apical] 86 Pulse Rate [Apical] 77 Respiratory Rate 18 Respiratory Rate 20 Blood Pressure [Right Arm] 170/100 Blood Pressure [Right Arm] 178/71 O2 Sat by Pulse Oximetry 91 O2 Sat by Pulse Oximetry 92 Intake and Output: Intake & Output 12/11/23 12/12/23 12/13/23 12/14/23 11:59 11:59 11:59 11:59 Intake Total 2119 1424 / 1424 Output Total 0 / 0 Balance 2119 1424 / 1424 Physical Exam Oriented: Person Eyes: Normal Throat: Normal Respiratory: Generalized and Diminished Cardiovascular: Edema Auscultation: Bowel Sounds: Normal Tenderness: Normal Skin: Decreased Turgur, Tender, Bruising (large bruise noted on lower back ) and Ecchymosis Psychiatric: Normal Mood Description: Calm Affect: Normal Speech Pattern: Clear and Appropriate Laboratory and Diagnostics 12/14/23 05:42 12/14/23 05:42 Labs: 12/10/23 15:10 Blood Blood Culture - Preliminary 12/10/23 14:59 Blood Blood Culture - Preliminary 12/10/23 16:00 Urine,Clean Catch Urine Culture - Final Escherichia Coli Laboratory WBC 4.9 X10^3/uL (3.6-10.0) 12/13/23 05:32 RBC 3.39 X10^6/uL (3.5-5.4) L 12/13/23 05:32 Hgb 9.7 g/dL (12.0-16.0) L 12/13/23 05:32 Hct 30.5 % (36.0-47.0) L 12/13/23 05:32 MCV 90.0 fL (80.0-100.0) 12/13/23 05:32 MCH 28.6 pg (27.0-34.0) 12/13/23 05:32 MCHC 31.8 g/dL (33.0-35.0) L 12/13/23 05:32 RDW 14.5 % (11.6-16.5) 12/13/23 05:32 Plt Count 204 X10^3/uL (150.0-450.0) 12/13/23 05:32 MPV 8.7 fL (7.4-11.0) 12/13/23 05:32 Neut % (Auto) 62.5 % (42.0-75.0) 12/13/23 05:32 Lymph % (Auto) 17.4 % (21.0-51.0) L 12/13/23 05:32 [place] % (Auto) 12.6 % (0.0-13.0) 12/13/23 05:32 Eos % (Auto) 6.5 % (0.9-2.9) H 12/13/23 05:32 Baso % (Auto) 1.0 % (0.2-1.0) 12/13/23 05:32 Neut # (Auto) 3.1 x10^3/uL (2.2-4.8) 12/13/23 05:32 Lymph # (Auto) 0.9 X10^3/uL (1.3-2.9) L 12/13/23 05:32 [place] # (Auto) 0.6 x10^3/uL (0.3-0.8) 12/13/23 05:32 Eos # (Auto) 0.3 x10^3/uL (0.0-0.2) H 12/13/23 05:32 Baso # (Auto) 0.0 X10^3/uL (0.0-0.1) 12/13/23 05:32 Absolute Nucleated RBC 0.1 /100WBC 12/13/23 05:32 Sodium 144 mmol/L (136-145) 12/13/23 05:32 Corrected Sodium TNP 12/13/23 05:32 Potassium 4.8 mmol/L (3.5-5.1) 12/13/23 05:32 Chloride 110 mmol/L (98-107) H 12/13/23 05:32 Carbon Dioxide 27.8 mmol/L (21-32) 12/13/23 05:32 BUN 38 mg/dL (7-18) H 12/13/23 05:32 Creatinine 1.16 mg/dL (0.55-1.02) H 12/13/23 05:32 Est GFR (MDRD) Af Amer 58 (>60) L 12/13/23 05:32 Est GFR (MDRD) Non-Af 48 (>60) L 12/13/23 05:32 Glucose 87 mg/dL (65-99) 12/13/23 05:32 Calcium 8.3 mg/dL (8.5-10.1) L 12/13/23 05:32 Corrected Calcium 10.0 mg/dL (8.5-10.1) 12/13/23 05:32 Magnesium 2.8 mg/dL (2.0-2.9) 12/11/23 12:13 Total Bilirubin 0.10 mg/dL (0.2-1.0) L 12/13/23 05:32 AST 16 Units/L (15-37) 12/13/23 05:32 ALT 7 Units/L (12-78) L 12/13/23 05:32 Alkaline Phosphatase 80 Units/L (46-116) 12/13/23 05:32 Creatine Kinase 35 Units/L (26-192) 12/10/23 14:59 Troponin I High Sens 16.0 ng/L (4.0-60.0) 12/10/23 14:59 Total Protein 6.3 g/dL (6.4-8.2) L 12/13/23 05:32 Albumin 1.9 g/dL (3.4-5.0) L 12/13/23 05:32 Globulin 4.4 g/dL (2.5-4.5) 12/13/23 05:32 Albumin/Globulin Ratio 0.4 Ratio (1.1-2.1) L 12/13/23 05:32 TSH 3rd Generation 1.929 uIU/mL (0.358-3.74) 12/10/23 16:40 Specimen Type Catherized urine 12/10/23 16:00 Urine Color Yellow (YELLOW) 12/10/23 16:00 Urine Appearance Hazy (CLEAR) 12/10/23 16:00 Urine pH 5.0 (5.0 - 8.0) 12/10/23 16:00 Ur Specific [place] 1.015 (1.000-1.030) 12/10/23 16:00 Urine Protein 2+ (NEGATIVE) 12/10/23 16:00 Urine Glucose (UA) Negative (NEGATIVE) 12/10/23 16:00 Urine Ketones Negative (NEGATIVE) 12/10/23 16:00 Urine Blood 4+ (NEGATIVE) 12/10/23 16:00 Urine Nitrite Negative (NEGATIVE) 12/10/23 16:00 Urine Bilirubin Negative (NEGATIVE) 12/10/23 16:00 Urine Urobilinogen Normal (NORMAL) 12/10/23 16:00 Ur Leukocyte Esterase 3+ (NEGATIVE) 12/10/23 16:00 Urine RBC Tntc /HPF (0-3) A 12/10/23 16:00 Urine WBC Tntc /HPF (0-5) A 12/10/23 16:00 Ur Squamous Epith Cells Few /HPF (NEGATIVE) 12/10/23 16:00 Urine Bacteria 4+ /HPF (NEGATIVE) 12/10/23 16:00 Ur Culture Indicated? Yes/culture set up 12/10/23 16:00 Plan (1) AMS (altered mental status): Status: Acute Qualifiers: Altered mental status type: unspecified Qualified Code(s): R41.82 - Al tered mental status, unspecified Plan: OBTAIN CT ABDOMEN AND PELVIS, CHEST XRAY. CONTINUE IV ABX, IV HYDRATION, PT/OT, BP CONTROL, SUPPLEMENTAL O2. (2) UTI (urinary tract infection): Status: Acute Qualifiers: Hematuria presence: without hematuria Urinary tract infection type: acute cystitis Qualified Code(s): N30.00 - Acute cystitis without hematuria (3) Bradycardia: Status: Acute (4) Fall: Status: Acute Qualifiers: Encounter type: subsequent encounter Qualified Code(s): W19.XXXD - Unspecified fall, subsequent encounter (5) Hypertension: Status: Acute Qualifiers: Hypertension type: primary hypertension Qualified Code(s): I10 - Essential (primary) hypertension (6) EUGENE (acute kidney injury): Status: Acute (7) Anemia: Status: Acute Qualifiers: Anemia type: unspecified type Qualified Code(s): D64.9 - Anemia, unspec ified
--- NOTE | 2023-12-14 18:07 | PCM.PROG ---
Progress Note Progress Note for Day of Date of Exam: 12/14/23 Subjective Subjective: PATIENT IS AN 83 YEAR OLD WHITE FEMALE WHO WAS A DIRECT ADMIT ON 12/10/23 FOR RECURRENT FALLS, AMS AND UTI. UPON ADMISSION, WE OBTAINED URINE CULTURES- POSITIVE FOR ECOLI, CT BRAIN- NO ACUTE PROCESS, CXR- CHRONIC LUNG DISEASE AND MODERATE CARDIOMEGALY. ADMISSION LABS: WBC 6.1, HGB 10.5, BUN 69 /CREATININE 2.01. OVER THE WEEKEND, PT DID HAVE SOME ELEVATED BLOOD PRESSURE READINGS AND BRADYCARDIA. METOPROLOL WAS HELD, THEN RESUMED LAST PMH AFTER PT HAS INCREASED HEART RATE, EKG REVEALING SINUS TACHYCARDIA. EKG AND CE WERE OBTAINED. PTS HR WAS 58 THIS AM, SO WE DECREASED HER BID DOSE OF METOPROLOL AND SHE HAS TOLERATED IT FINE. SHE DENIES CHEST PAIN, DIZZINESS, BLURRED VISION. REHAB PLACEMENT DISCUSSED WITH PT AND FAMILY AND CASEMANAGER WORKING ON PLACEMENT. AM VITALS: 140/70-58-98.2-94% ON 2L. Past Medical Family Social History Allergies: Allergies No Known Drug Allergies Allergy (Verified 12/10/23 14:27) dymaox Allergy (Uncoded 12/10/23 14:28) Vital Signs and I&O's Vital Signs: Vital Signs Temperature 98.2 F Temperature 98.3 F Pulse Rate [Apical] 58 Pulse Rate [Apical] 64 Respiratory Rate 19 Respiratory Rate 18 Respiratory Rate 18 Respiratory Rate 18 Blood Pressure [Left Arm] 140/70 Blood Pressure [Left Arm] 160/90 O2 Sat by Pulse Oximetry 94 O2 Sat by Pulse Oximetry 95 Intake and Output: Intake & Output 12/12/23 12/13/23 12/14/23 12/15/23 11:59 11:59 11:59 11:59 Intake Total 1900 1424 / 1424 2776 / 2776 614 / 614 Balance 1900 1424 / 1424 2776 / 2776 614 / 614 Physical Exam Oriented: Person Eyes: Normal Throat: Normal Respiratory: Generalized and Diminished Cardiovascular: Edema Auscultation: Bowel Sounds: Normal Tenderness: Normal Skin: Decreased Turgur, Tender, Bruising (large bruise noted on lower back ) and Ecchymosis Psychiatric: Normal Mood Description: Calm Affect: Normal Speech Pattern: Clear and Appropriate Laboratory and Diagnostics 12/14/23 05:42 12/14/23 05:42 Labs: 12/10/23 15:10 Blood Blood Culture - Preliminary 12/10/23 14:59 Blood Blood Culture - Preliminary 12/10/23 16:00 Urine,Clean Catch Urine Culture - Final Escherichia Coli Laboratory WBC 5.6 X10^3/uL (3.6-10.0) 12/14/23 05:42 RBC 3.14 X10^6/uL (3.5-5.4) L 12/14/23 05:42 Hgb 9.1 g/dL (12.0-16.0) L 12/14/23 05:42 Hct 28.3 % (36.0-47.0) L 12/14/23 05:42 MCV 90.1 fL (80.0-100.0) 12/14/23 05:42 MCH 29.0 pg (27.0-34.0) 12/14/23 05:42 MCHC 32.2 g/dL (33.0-35.0) L 12/14/23 05:42 RDW 14.2 % (11.6-16.5) 12/14/23 05:42 Plt Count 186 X10^3/uL (150.0-450.0) 12/14/23 05:42 MPV 8.3 fL (7.4-11.0) 12/14/23 05:42 Neut % (Auto) 61.1 % (42.0-75.0) 12/14/23 05:42 Lymph % (Auto) 21.6 % (21.0-51.0) 12/14/23 05:42 [place] % (Auto) 10.7 % (0.0-13.0) 12/14/23 05:42 Eos % (Auto) 5.7 % (0.9-2.9) H 12/14/23 05:42 Baso % (Auto) 0.9 % (0.2-1.0) 12/14/23 05:42 Neut # (Auto) 3.4 x10^3/uL (2.2-4.8) 12/14/23 05:42 Lymph # (Auto) 1.2 X10^3/uL (1.3-2.9) L 12/14/23 05:42 [place] # (Auto) 0.6 x10^3/uL (0.3-0.8) 12/14/23 05:42 Eos # (Auto) 0.3 x10^3/uL (0.0-0.2) H 12/14/23 05:42 Baso # (Auto) 0.1 X10^3/uL (0.0-0.1) 12/14/23 05:42 Absolute Nucleated RBC 0.0 /100WBC 12/14/23 05:42 Sodium 144 mmol/L (136-145) 12/14/23 05:42 Corrected Sodium TNP 12/14/23 05:42 Potassium 4.8 mmol/L (3.5-5.1) 12/14/23 05:42 Chloride 109 mmol/L (98-107) H 12/14/23 05:42 Carbon Dioxide 29.5 mmol/L (21-32) 12/14/23 05:42 BUN 25 mg/dL (7-18) H 12/14/23 05:42 Creatinine 1.10 mg/dL (0.55-1.02) H 12/14/23 05:42 Est GFR (MDRD) Af Amer > 60 (>60) 12/14/23 05:42 Est GFR (MDRD) Non-Af 51 (>60) L 12/14/23 05:42 Glucose 86 mg/dL (65-99) 12/14/23 05:42 Calcium 8.3 mg/dL (8.5-10.1) L 12/14/23 05:42 Corrected Calcium 9.9 mg/dL (8.5-10.1) 12/14/23 05:42 Magnesium 2.8 mg/dL (2.0-2.9) 12/11/23 12:13 Total Bilirubin 0.10 mg/dL (0.2-1.0) L 12/14/23 05:42 AST 15 Units/L (15-37) 12/14/23 05:42 ALT 9 Units/L (12-78) L 12/14/23 05:42 Alkaline Phosphatase 75 Units/L (46-116) 12/14/23 05:42 Creatine Kinase 20 Units/L (26-192) L 12/14/23 05:42 Troponin I High Sens 36.0 ng/L (4.0-60.0) 12/14/23 05:42 Total Protein 6.3 g/dL (6.4-8.2) L 12/14/23 05:42 Albumin 2.0 g/dL (3.4-5.0) L 12/14/23 05:42 Globulin 4.3 g/dL (2.5-4.5) 12/14/23 05:42 Albumin/Globulin Ratio 0.5 Ratio (1.1-2.1) L 12/14/23 05:42 TSH 3rd Generation 1.929 uIU/mL (0.358-3.74) 12/10/23 16:40 Specimen Type Catherized urine 12/10/23 16:00 Urine Color Yellow (YELLOW) 12/10/23 16:00 Urine Appearance Hazy (CLEAR) 12/10/23 16:00 Urine pH 5.0 (5.0 - 8.0) 12/10/23 16:00 Ur Specific [place] 1.015 (1.000-1.030) 12/10/23 16:00 Urine Protein 2+ (NEGATIVE) 12/10/23 16:00 Urine Glucose (UA) Negative (NEGATIVE) 12/10/23 16:00 Urine Ketones Negative (NEGATIVE) 12/10/23 16:00 Urine Blood 4+ (NEGATIVE) 12/10/23 16:00 Urine Nitrite Negative (NEGATIVE) 12/10/23 16:00 Urine Bilirubin Negative (NEGATIVE) 12/10/23 16:00 Urine Urobilinogen Normal (NORMAL) 12/10/23 16:00 Ur Leukocyte Esterase 3+ (NEGATIVE) 12/10/23 16:00 Urine RBC Tntc /HPF (0-3) A 12/10/23 16:00 Urine WBC Tntc /HPF (0-5) A 12/10/23 16:00 Ur Squamous Epith Cells Few /HPF (NEGATIVE) 12/10/23 16:00 Urine Bacteria 4+ /HPF (NEGATIVE) 12/10/23 16:00 Ur Culture Indicated? Yes/culture set up 12/10/23 16:00 Plan (1) AMS (altered mental status): Status: Acute Qualifiers: Altered mental status type: unspecified Qualified Code(s): R41.82 - Altered mental status, unspecified Plan: CHEST XRAY. CONTINUE IV ABX, IV HYDRATION, PT/OT, BP CONTROL, SUPPLEMENTAL O2. (2) UTI (urinary tract infection): Status: Acute Qualifiers: Urinary tract infection type: acute cystitis Hematuria presence: without hematuria Qualified Code(s): N30.00 - Acute cystitis without hematuria (3) Bradycardia: Status: Acute (4) Fall: Status: Acute Qualifiers: Encounter type: subsequent encounter Qualified Code(s): W19.XXXD - Unspecified fall, subsequent encounter (5) Hypertension: Status: Acute Qualifiers: Hypertension type: primary hypertension Qualified Code(s): I10 - Essential (primary) hypertension (6) EUGENE (acute kidney injury): Status: Acute (7) Anemia: Status: Acute Qualifiers: Anemia type: unspecified type Qualified Code(s): D64.9 - Anemia, unspecified
[2023-12-14] MEDS: CATAPRES TAB 0.1 MG PO ONE (22:35)
[2023-12-15] MEDS: APRESOLINE INJ 20 MG VIAL IVP ONE ×2 (06:11→16:22)
[2023-12-15 06:20] LABS: BASOPHILS % (AUTO) 0.4 % (0.2-1.0); EOSINOPHILS # (AUTO) 0.4 x10^3/uL (0.0-0.2); EOSINOPHILS % (AUTO) 5.5 % (0.9-2.9); HEMATOCRIT 33.6 % (36.0-47.0); HEMOGLOBIN 10.6 g/dL (12.0-16.0); LYMPHOCYTES # (AUTO) 1.4 X10^3/uL (1.3-2.9); LYMPHOCYTES % (AUTO) 19.5 % (21.0-51.0); MEAN CORPUSCULAR HEMOGLOBIN 28.5 pg (27.0-34.0); MEAN CORPUSCULAR HGB CONC 31.6 g/dL (33.0-35.0); MEAN CORPUSCULAR VOLUME 90.3 fL (80.0-100.0); MEAN PLATELET VOLUME 8.5 fL (7.4-11.0); MONOCYTES # (AUTO) 0.6 x10^3/uL (0.3-0.8); MONOCYTES % (AUTO) 8.7 % (0.0-13.0); NEUTROPHILS # (AUTO) 4.9 x10^3/uL (2.2-4.8); NEUTROPHILS % (AUTO) 65.9 % (42.0-75.0); PLATELET COUNT 218 X10^3/uL (150.0-450.0); RED BLOOD COUNT 3.73 X10^6/uL (3.5-5.4); RED CELL DISTRIBUTION WIDTH 14.6 % (11.6-16.5); WHITE BLOOD COUNT 7.4 X10^3/uL (3.6-10.0)
[2023-12-15 06:37] LABS: ALANINE AMINOTRANSFERASE 11 Units/L (12-78); ALBUMIN 2.5 g/dL (3.4-5.0); ALKALINE PHOSPHATASE 93 Units/L (46-116); ASPARTATE AMINO TRANSFERASE 27 Units/L (15-37); BLOOD UREA NITROGEN 23 mg/dL (7-18); CALCIUM 8.8 mg/dL (8.5-10.1); CARBON DIOXIDE 30.6 mmol/L (21-32); CHLORIDE 108 mmol/L (98-107); CREATININE 0.99 mg/dL (0.55-1.02); GLUCOSE 91 mg/dL (65-99); SODIUM 142 mmol/L (136-145); TOTAL PROTEIN 7.7 g/dL (6.4-8.2); eGFR NON BLACK RACES 57 (>60)
[2023-12-15 06:39] LABS: POTASSIUM 5.4 mmol/L (3.5-5.1)
[2023-12-15] MEDS: LASIX IVP SCH (09:52)
[2023-12-15] MEDS ORDERED: CONSULT PHARMACY - POTASSIUM & MAGNESIUM XX SCH (11:00)
[2023-12-15] MEDS: MAG-OX TAB PO SCH (12:14)
[2023-12-15] MEDS: MORPHINE SULFATE INJ 2 MG INJ IVP PRN (12:22)
--- NOTE | 2023-12-15 17:24 | PCM.PROG ---
Progress Note Progress Note for Day of Date of Exam: 12/15/23 Subjective Subjective: PATIENT IS AN 83 YEAR OLD WHITE FEMALE WHO WAS A DIRECT ADMIT ON 12/10/23 FOR RECURRENT FALLS, AMS AND UTI. UPON ADMISSION, WE OBTAINED URINE CULTURES- POSITIVE FOR ECOLI, CT BRAIN- NO ACUTE PROCESS, CXR- CHRONIC LUNG DISEASE AND MODERATE CARDIOMEGALY. ADMISSION LABS: WBC 6.1, HGB 10.5, BUN 69 /CREATININE 2.01. OVER THE WEEKEND, PT DID HAVE SOME ELEVATED BLOOD PRESSURE READINGS AND BRADYCARDIA. METOPROLOL WAS HELD, THEN RESUMED AT 12.5MG (DECREASED STRENGTH) BID AFTER PT HAD INCREASED HEART RATE. SHE DENIES CHEST PAIN, DIZZINESS, BLURRED VISION. REHAB PLACEMENT DISCUSSED WITH PT AND FAMILY AND CASEMANAGER WORKING ON PLACEMENT. AM LABS: HGB 10.6, WBC 7.4, BUN 23/CREATININE 0.99. MORNING VITALS: WBC 174/74-63-98.3-18-95% ON 2L. Past Medical Family Social History Allergies: Allergies No Known Drug Allergies Allergy (Verified 12/10/23 14:27) dymaox Allergy (Uncoded 12/10/23 14:28) Vital Signs and I&O's Vital Signs: Vital Signs Temperature 98.4 F Temperature 98.1 F Pulse Rate [Apical] 69 Pulse Rate [Apical] 61 Pulse Rate [Apical] 62 Respiratory Rate 22 Respiratory Rate 18 Respiratory Rate 18 Respiratory Rate 18 Respiratory Rate 18 Respiratory Rate 18 Blood Pressure [Left Arm] 199/80 Blood Pressure [Left Arm] 182/75 Blood Pressure [Left Arm] 164/82 O2 Sat by Pulse Oximetry 97 O2 Sat by Pulse Oximetry 95 O2 Sat by Pulse Oximetry 95 Intake and Output: Intake & Output 12/13/23 12/14/23 12/15/23 12/16/23 11:59 11:59 11:59 11:59 Intake Total 1424 / 1424 2776 / 2776 2699 / 2699 462 / 462 Balance 1424 / 1424 2776 / 2776 2699 / 2699 462 / 462 Physical Exam Oriented: Person Eyes: Normal Throat: Normal Respiratory: Generalized and Diminished Cardiovascular: Edema Auscultation: Bowel Sounds: Normal Tenderness: Normal Skin: Decreased Turgur, Tender, Bruising (large bruise noted on lower back ) and Ecchymosis Psychiatric: Normal Mood Description: Calm Affect: Normal Speech Pattern: Clear and Appropriate Laboratory and Diagnostics 12/15/23 05:50 12/15/23 05:50 Labs: 12/10/23 15:10 Blood Blood Culture - Preliminary 12/10/23 14:59 Blood Blood Culture - Preliminary 12/10/23 16:00 Urine,Clean Catch Urine Culture - Final Escherichia Coli Laboratory WBC 7.4 X10^3/uL (3.6-10.0) 12/15/23 05:50 RBC 3.73 X10^6/uL (3.5-5.4) 12/15/23 05:50 Hgb 10.6 g/dL (12.0-16.0) L 12/15/23 05:50 Hct 33.6 % (36.0-47.0) L 12/15/23 05:50 MCV 90.3 fL (80.0-100.0) 12/15/23 05:50 MCH 28.5 pg (27.0-34.0) 12/15/23 05:50 MCHC 31.6 g/dL (33.0-35.0) L 12/15/23 05:50 RDW 14.6 % (11.6-16.5) 12/15/23 05:50 Plt Count 218 X10^3/uL (150.0-450.0) 12/15/23 05:50 MPV 8.5 fL (7.4-11.0) 12/15/23 05:50 Neut % (Auto) 65.9 % (42.0-75.0) 12/15/23 05:50 Lymph % (Auto) 19.5 % (21.0-51.0) L 12/15/23 05:50 [place] % (Auto) 8.7 % (0.0-13.0) 12/15/23 05:50 Eos % (Auto) 5.5 % (0.9-2.9) H 12/15/23 05:50 Baso % (Auto) 0.4 % (0.2-1.0) 12/15/23 05:50 Neut # (Auto) 4.9 x10^3/uL (2.2-4.8) H 12/15/23 05:50 Lymph # (Auto) 1.4 X10^3/uL (1.3-2.9) 12/15/23 05:50 [place] # (Auto) 0.6 x10^3/uL (0.3-0.8) 12/15/23 05:50 Eos # (Auto) 0.4 x10^3/uL (0.0-0.2) H 12/15/23 05:50 Baso # (Auto) 0.0 X10^3/uL (0.0-0.1) 12/15/23 05:50 Absolute Nucleated RBC 0.0 /100WBC 12/15/23 05:50 Sodium 142 mmol/L (136-145) 12/15/23 05:50 Corrected Sodium TNP 12/15/23 05:50 Potassium 5.4 mmol/L (3.5-5.1) H 12/15/23 05:50 Chloride 108 mmol/L (98-107) H 12/15/23 05:50 Carbon Dioxide 30.6 mmol/L (21-32) 12/15/23 05:50 BUN 23 mg/dL (7-18) H 12/15/23 05:50 Creatinine 0.99 mg/dL (0.55-1.02) 12/15/23 05:50 Est GFR (MDRD) Af Amer > 60 (>60) 12/15/23 05:50 Est GFR (MDRD) Non-Af 57 (>60) L 12/15/23 05:50 Glucose 91 mg/dL (65-99) 12/15/23 05:50 Calcium 8.8 mg/dL (8.5-10.1) 12/15/23 05:50 Corrected Calcium 10.0 mg/dL (8.5-10.1) 12/15/23 05:50 Magnesium 1.9 mg/dL (2.0-2.9) L 12/15/23 05:50 Total Bilirubin 0.20 mg/dL (0.2-1.0) 12/15/23 05:50 AST 27 Units/L (15-37) 12/15/23 05:50 ALT 11 Units/L (12-78) L 12/15/23 05:50 Alkaline Phosphatase 93 Units/L (46-116) 12/15/23 05:50 Creatine Kinase 20 Units/L (26-192) L 12/14/23 05:42 Troponin I High Sens 36.0 ng/L (4.0-60.0) 12/14/23 05:42 Total Protein 7.7 g/dL (6.4-8.2) 12/15/23 05:50 Albumin 2.5 g/dL (3.4-5.0) L 12/15/23 05:50 Globulin 5.2 g/dL (2.5-4.5) H 12/15/23 05:50 Albumin/Globulin Ratio 0.5 Ratio (1.1-2.1) L 12/15/23 05:50 TSH 3rd Generation 1.929 uIU/mL (0.358-3.74) 12/10/23 16:40 Specimen Type Catherized urine 12/10/23 16:00 Urine Color Yellow (YELLOW) 12/10/23 16:00 Urine Appearance Hazy (CLEAR) 12/10/23 16:00 Urine pH 5.0 (5.0 - 8.0) 12/10/23 16:00 Ur Specific [place] 1.015 (1.000-1.030) 12/10/23 16:00 Urine Protein 2+ (NEGATIVE) 12/10/23 16:00 Urine Glucose (UA) Negative (NEGATIVE) 12/10/23 16:00 Urine Ketones Negative (NEGATIVE) 12/10/23 16:00 Urine Blood 4+ (NEGATIVE) 12/10/23 16:00 Urine Nitrite Negative (NEGATIVE) 12/10/23 16:00 Urine Bilirubin Negative (NEGATIVE) 12/10/23 16:00 Urine Urobilinogen Normal (NORMAL) 12/10/23 16:00 Ur Leukocyte Esterase 3+ (NEGATIVE) 12/10/23 16:00 Urine RBC Tntc /HPF (0-3) A 12/10/23 16:00 Urine WBC Tntc /HPF (0-5) A 12/10/23 16:00 Ur Squamous Epith Cells Few /HPF (NEGATIVE) 12/10/23 16:00 Urine Bacteria 4+ /HPF (NEGATIVE) 12/10/23 16:00 Ur Culture Indicated? Yes/culture set up 12/10/23 16:00 Plan (1) AMS (altered mental status): Status: Acute Qualifiers: Altered mental status type: unspecified Qualified Code(s): R41.82 - Altered mental status, unspecified Plan: DECREASE NS TO 50CC/HR, LASIX 40MG X1DOSE. CONTINUE IV ABX, IV HYDRATION, PT/OT, BP CONTROL, SUPPLEMENTAL O2. (2) UTI (urinary tract infection): Status: Acute Qualifiers: Hematuria presence: without hematuria Urinary tract infection type: acu te cystitis Qualified Code(s): N30.00 - Acute cystitis without hematuria (3) Bradycardia: Status: Acute (4) Fall: Status: Acute Qualifiers: Encounter type: subsequent encounter Qualified Code(s): W19.XXXD - Unspecified fall, subsequent encounter (5) Hypertension: Status: Acute Qualifiers: Hypertension type: primary hypertension Qualified Code(s): I10 - Essential (primary) hypertension (6) EUGENE (acute kidney injury): Status: Acute (7) Anemia: Status: Acute Qualifiers: Anemia type: unspecified type Qualified Code(s): D64.9 - Anemia, unspecified
[2023-12-15] MEDS: APRESOLINE TAB 25 MG PO SCH (18:09)
[2023-12-15] MEDS: APRESOLINE TAB 25 MG ONE (18:09)
[2023-12-15 23:37] VITALS: RESP 20
--- NOTE | 2023-12-16 05:52 | RAD ---
EXAM:CHEST, 1 VIEWHISTORY:SOB;COMPARISON:12/13/2023 r.[email or web address] stable.Chronic appearing interstitial changes in the lungs. No acute airspace disease. No pneumothorax or effusion.No acute osseous abnormality.IMPRESSION:No acute cardiopulmonary disease.THIS IS AN ELECTRONICALLY VERIFIED FINAL REPORT12/16/2023 5:49 AM - Electronically signed by Sheldon Pablo MD
[2023-12-16 06:41] LABS: BASOPHILS # (AUTO) 0.1 X10^3/uL (0.0-0.1); BASOPHILS % (AUTO) 1.9 % (0.2-1.0); EOSINOPHILS # (AUTO) 0.4 x10^3/uL (0.0-0.2); EOSINOPHILS % (AUTO) 5.3 % (0.9-2.9); HEMATOCRIT 31.8 % (36.0-47.0); HEMOGLOBIN 10.3 g/dL (12.0-16.0); LYMPHOCYTES # (AUTO) 1.1 X10^3/uL (1.3-2.9); LYMPHOCYTES % (AUTO) 14.8 % (21.0-51.0); MEAN CORPUSCULAR HEMOGLOBIN 28.8 pg (27.0-34.0); MEAN CORPUSCULAR HGB CONC 32.3 g/dL (33.0-35.0); MEAN CORPUSCULAR VOLUME 88.9 fL (80.0-100.0); MONOCYTES # (AUTO) 0.7 x10^3/uL (0.3-0.8); MONOCYTES % (AUTO) 9.9 % (0.0-13.0); NEUTROPHILS # (AUTO) 4.9 x10^3/uL (2.2-4.8); NEUTROPHILS % (AUTO) 68.1 % (42.0-75.0); PLATELET COUNT 208 X10^3/uL (150.0-450.0); RED BLOOD COUNT 3.57 X10^6/uL (3.5-5.4); RED CELL DISTRIBUTION WIDTH 14.5 % (11.6-16.5); WHITE BLOOD COUNT 7.1 X10^3/uL (3.6-10.0)
[2023-12-16 07:00] LABS: ALANINE AMINOTRANSFERASE 6 Units/L (12-78); ALBUMIN 2.2 g/dL (3.4-5.0); ALKALINE PHOSPHATASE 90 Units/L (46-116); ASPARTATE AMINO TRANSFERASE 17 Units/L (15-37); BLOOD UREA NITROGEN 20 mg/dL (7-18); CALCIUM 8.5 mg/dL (8.5-10.1); CHLORIDE 107 mmol/L (98-107); COR CA(FOR HYPOALB) 9.9 mg/dL (8.5-10.1); GLUCOSE 84 mg/dL (65-99); POTASSIUM 4.5 mmol/L (3.5-5.1); SODIUM 142 mmol/L (136-145); eGFR NON BLACK RACES > 60 (>60)
[2023-12-16] MEDS ORDERED: CONSULT PHARMACY - POTASSIUM & MAGNESIUM XX SCH (08:00)
[2023-12-16] MEDS: MAG-OX TAB PO SCH (08:27)
[2023-12-16] MEDS: ROCEPHIN VIAL 1 GRAM IM SCH (08:29)
[2023-12-16] MEDS: KEFLEX CAP 500 MG PO SCH (08:58)
[2023-12-16] MEDS: DIFLUCAN PO ONE (08:58)
[2023-12-16] MEDS: ZOFRAN TAB 4 MG PO PRN (09:57)
[2023-12-16 11:53] VITALS: BP 192/81; PULSE 55; TEMP 98.1; O2SAT 99
== END 2023-12-16 13:50 | DRG 690 ==
LOC: MED/SURG
PROVIDERS: ADMIT Internal Medicine; ATTEND Internal Medicine
DX: R00.1 Bradycardia, unspecified; W18.39XA Other fall on same level, initial encounter; K21.9 Gastro-esophageal reflux disease without esophagitis; D64.89 Other specified anemias; R41.82 Altered mental status, unspecified; I11.9 Hypertensive heart disease without heart failure; I51.7 Cardiomegaly; R94.31 Abnormal electrocardiogram [ECG] [EKG]; E83.42 Hypomagnesemia; R26.89 Other abnormalities of gait and mobility; Z65.8 Other specified problems related to psychosocial circumstances; R29.6 Repeated falls; E11.65 Type 2 diabetes mellitus with hyperglycemia; B96.29 Other Escherichia coli [E. coli] as the cause of diseases classified elsewhere; R60.1 Generalized edema; N17.8 Other acute kidney failure; R53.1 Weakness; I25.10 Atherosclerotic heart disease of native coronary artery without angina pectoris; N39.0 Urinary tract infection, site not specified; R06.02 Shortness of breath

== ENCOUNTER 2024-07-17 15:13 | Inpatient (IN) ==
--- NOTE | 2024-07-17 16:11 | EKG ---
Test Reason : AMS Blood Pressure : */* mmHG Vent. Rate : 58 BPM Atrial Rate : 58 BPM P-R Int : 176 ms QRS Dur : 130 ms QT Int : 476 ms P-R-T Axes : 67 -54 102 degrees QTc Int : 467 ms Sinus bradycardia Left axis deviation Left ventricular hypertrophy with QRS widening and repolarization abnormality ( R in aVL , Challenge pr oduct , [place] ) Abnormal ECG When compared with ECG of 14-DEC-2023 08:38, premature supraventricular complexes are no longer present Confirmed by Arben Mills MD ([id number]) on 07/18/2024 7:31:54 AM Referred By: Confirmed By: Arben Mills MD
--- NOTE | 2024-07-17 16:57 | CT ---
EXAM:BRAIN W/O CONHISTORY:AMS;COMPARISON:12/10/2023 .br.[email or web address] the skullbase to the vertex using standard departmental protocol. Sagittal and coronal reformatted images were performed. Dose reduction techniques including Automated Exposure Control (AEC) and adjustment of mA and kV were utilized.FINDINGS:No hemorrhage or midline shift. Briceño-white matter differentiation maintained. Mild atrophy and chronic small vessel ischemic change.Ventricles and cisterns are appropriate.Visualized sinuses are clear. Calvarium unremarkable. No evidence for mass or mass effect by noncontrast CT.IMPRESSION:Mild atrophy and chronic small-vessel ischemic change with no acute intracranial findings. MRI is more sensitive for acute infarct.THIS IS AN ELECTRONICALLY VERIFIED FINAL [id number] 4:54 PM - Electronically signed by Adrián Ring MD
[2024-07-17] MEDS: NS 1,000 ML IV 1,000 ML IV SCH (17:00)
[2024-07-17] MEDS: ROCEPHIN VIAL 1 GRAM 1 G in NS 100 ML IV 100 ML IV SCH (17:01)
[2024-07-17 17:05] LABS: BASOPHILS # (AUTO) 0.1 X10^3/uL (0.0-0.1); EOSINOPHILS # (AUTO) 0.3 x10^3/uL (0.0-0.2); EOSINOPHILS % (AUTO) 4.3 % (0.9-2.9); HEMATOCRIT 31.6 % (36.0-47.0); HEMOGLOBIN 10.3 g/dL (12.0-16.0); LYMPHOCYTES # (AUTO) 1.2 X10^3/uL (1.3-2.9); LYMPHOCYTES % (AUTO) 16.4 % (21.0-51.0); MEAN CORPUSCULAR HEMOGLOBIN 30.3 pg (27.0-34.0); MEAN CORPUSCULAR HGB CONC 32.5 g/dL (33.0-35.0); MEAN CORPUSCULAR VOLUME 93.4 fL (80.0-100.0); MEAN PLATELET VOLUME 9.4 fL (7.4-11.0); MONOCYTES # (AUTO) 0.6 x10^3/uL (0.3-0.8); NEUTROPHILS # (AUTO) 5.1 x10^3/uL (2.2-4.8); NEUTROPHILS % (AUTO) 70.3 % (42.0-75.0); PLATELET COUNT 239 X10^3/uL (150.0-450.0); RED BLOOD COUNT 3.38 X10^6/uL (3.5-5.4); RED CELL DISTRIBUTION WIDTH 15.2 % (11.6-16.5); WHITE BLOOD COUNT 7.3 X10^3/uL (3.6-10.0)
[2024-07-17 17:11] LABS: ALBUMIN 2.4 g/dL (3.4-5.0); CALCIUM 7.2 mg/dL (8.5-10.1); CARBON DIOXIDE 29.4 mmol/L (21-32); COR CA(FOR HYPOALB) 8.5 mg/dL (8.5-10.1); CREATININE 3.4 mg/dL (0.55-1.02); POTASSIUM 3.5 mmol/L (3.5-5.1); TOTAL PROTEIN 6.9 g/dL (6.4-8.2)
[2024-07-17 17:17] LABS: MAGNESIUM 1.7 mg/dL (2.0-2.9)
[2024-07-17 17:38] LABS: BILIRUBIN,URINE NEGATIVE (NEGATIVE); BLOOD/HEMOGLOBIN,URINE NEGATIVE (NEGATIVE); GLUCOSE, URINE NEGATIVE (NEGATIVE); KETONES,URINE NEGATIVE (NEGATIVE); LEUKOCYTE ESTERASE ,URINE NEGATIVE (NEGATIVE); NITRITES,URINE NEGATIVE (NEGATIVE); PROTEIN,URINE 3+ (NEGATIVE); UROBILINOGEN,URINE NORMAL (NORMAL)
[2024-07-17 17:46] LABS: APPEARANCE,URINE CLEAR (CLEAR); BACTERIA,URINE TRACE /HPF (NEGATIVE); COLOR,URINE YELLOW (YELLOW); RBC,URINE 0-2 /HPF (0-3); SQUAMOUS EPITHELIAL CELL,UR RARE /HPF (NEGATIVE)
[2024-07-17] MEDS: SYNTHROID 175 mcg TAB PO SCH (18:00)
[2024-07-17 18:05] VITALS: BMI 29.6
[2024-07-17] MEDS: NS 250 ML IV 250 ML IV ONE (18:08)
[2024-07-17] MEDS ORDERED: MILK OF MAGNESIA PO PRN (19:18)
[2024-07-17] MEDS: COLACE CAP 100 MG PO SCH (20:34)
[2024-07-18 06:26] LABS: MEAN PLATELET VOLUME 9.2 fL (7.4-11.0)
[2024-07-18 06:29] LABS: BASOPHILS # (AUTO) 0.1 X10^3/uL (0.0-0.1); BASOPHILS % (AUTO) 1.1 % (0.2-1.0); EOSINOPHILS # (AUTO) 0.2 x10^3/uL (0.0-0.2); EOSINOPHILS % (AUTO) 3.9 % (0.9-2.9); HEMATOCRIT 31.5 % (36.0-47.0); HEMOGLOBIN 10.3 g/dL (12.0-16.0); LYMPHOCYTES % (AUTO) 16.3 % (21.0-51.0); MEAN CORPUSCULAR HEMOGLOBIN 30.5 pg (27.0-34.0); MEAN CORPUSCULAR HGB CONC 32.8 g/dL (33.0-35.0); MEAN CORPUSCULAR VOLUME 93.2 fL (80.0-100.0); MONOCYTES # (AUTO) 0.6 x10^3/uL (0.3-0.8); MONOCYTES % (AUTO) 9.3 % (0.0-13.0); NEUTROPHILS # (AUTO) 4.4 x10^3/uL (2.2-4.8); NEUTROPHILS % (AUTO) 69.4 % (42.0-75.0); PLATELET COUNT 184 X10^3/uL (150.0-450.0); RED BLOOD COUNT 3.38 X10^6/uL (3.5-5.4); RED CELL DISTRIBUTION WIDTH 15.3 % (11.6-16.5); WHITE BLOOD COUNT 6.4 X10^3/uL (3.6-10.0)
[2024-07-18 06:36] LABS: ALANINE AMINOTRANSFERASE 8 Units/L (12-78); ALBUMIN 2.3 g/dL (3.4-5.0); ALKALINE PHOSPHATASE 106 Units/L (46-116); ASPARTATE AMINO TRANSFERASE 9 Units/L (15-37); BLOOD UREA NITROGEN 51 mg/dL (7-18); CALCIUM 7.6 mg/dL (8.5-10.1); CARBON DIOXIDE 30.6 mmol/L (21-32); CHLORIDE 107 mmol/L (98-107); GLUCOSE 107 mg/dL (65-99); MAGNESIUM 1.8 mg/dL (2.0-2.9); POTASSIUM 3.7 mmol/L (3.5-5.1); SODIUM 145 mmol/L (136-145); TOTAL PROTEIN 6.8 g/dL (6.4-8.2); eGFR NON BLACK RACES 20 (>60)
[2024-07-18] MEDS ORDERED: D50W ABBOJECT SYR ONE (06:39)
[2024-07-18] MEDS: D50W ABBOJECT SYR IV ONE (06:45)
[2024-07-18] MEDS ORDERED: CONSULT PHARMACY - POTASSIUM & MAGNESIUM XX SCH (07:00)
[2024-07-18] MEDS: LOPRESSOR TAB 25 MG PO SCH (09:58)
[2024-07-18] MEDS: MAG-OX TAB PO NR (09:59)
[2024-07-18] MEDS: EFFEXOR XR 75 MG CAP 24-HR PO SCH (09:59)
[2024-07-18] MEDS: LOVENOX INJ 30 MG SYR SC SCH (10:00)
--- NOTE | 2024-07-18 12:02 | RAD ---
EXAM: CHEST, 1 VIEW HISTORY: sob; COMPARISON: Prior study or studies were utilized for comparison during interpretation with the most relevant jocelyne ed 12/15/2023 TECHNIQUE: CHEST, 1 VIEW FINDINGS: Chest: Lines and tubes: Cardiac leads overlie the chest. Mediastinum: Cardiac and mediastinal shadow is within normal limits for size and contour. Pulmonary vessels: No pulmonary vascular congestion. Lung alvarez: No suspicious airspace opacity. Pleura: No effusion. No pneumothorax. Bones and soft tissues: No acute osseous or soft tissue abnormality. IMPRESSION: 1. No acute cardiopulmonary abnormality THIS IS AN ELECTRONICALLY VERIFIED FINAL REPORT 07/18/2024 11:58 AM - Electronically signed by Héctor Todd MD
[2024-07-18] MEDS ORDERED: ATARAX TAB 10 MG PO PRN (18:40)
[2024-07-18] MEDS: SEROquel TAB 25 mg PO SCH (20:15)
[2024-07-18] MEDS: PRAVACHOL PO SCH (20:16)
[2024-07-18] MEDS ORDERED: ATARAX TAB 25 MG PO ONE (21:00)
[2024-07-18] MEDS: ATARAX TAB 25 MG PO PRN (21:11)
[2024-07-19 06:37] LABS: BASOPHILS # (AUTO) 0.1 X10^3/uL (0.0-0.1); BASOPHILS % (AUTO) 1.3 % (0.2-1.0); EOSINOPHILS # (AUTO) 0.2 x10^3/uL (0.0-0.2); EOSINOPHILS % (AUTO) 4.4 % (0.9-2.9); HEMATOCRIT 28.5 % (36.0-47.0); HEMOGLOBIN 9.6 g/dL (12.0-16.0); LYMPHOCYTES # (AUTO) 0.9 X10^3/uL (1.3-2.9); LYMPHOCYTES % (AUTO) 17.7 % (21.0-51.0); MEAN CORPUSCULAR HEMOGLOBIN 31.2 pg (27.0-34.0); MEAN CORPUSCULAR HGB CONC 33.6 g/dL (33.0-35.0); MEAN PLATELET VOLUME 8.5 fL (7.4-11.0); MONOCYTES # (AUTO) 0.5 x10^3/uL (0.3-0.8); MONOCYTES % (AUTO) 9.7 % (0.0-13.0); NEUTROPHILS # (AUTO) 3.3 x10^3/uL (2.2-4.8); NEUTROPHILS % (AUTO) 66.9 % (42.0-75.0); PLATELET COUNT 190 X10^3/uL (150.0-450.0); RED BLOOD COUNT 3.06 X10^6/uL (3.5-5.4); WHITE BLOOD COUNT 4.9 X10^3/uL (3.6-10.0)
[2024-07-19 06:55] LABS: ALANINE AMINOTRANSFERASE 6 Units/L (12-78); ALKALINE PHOSPHATASE 91 Units/L (46-116); ASPARTATE AMINO TRANSFERASE 10 Units/L (15-37); BLOOD UREA NITROGEN 41 mg/dL (7-18); CALCIUM 7.8 mg/dL (8.5-10.1); CARBON DIOXIDE 28.9 mmol/L (21-32); CHLORIDE 110 mmol/L (98-107); COR CA(FOR HYPOALB) 9.4 mg/dL (8.5-10.1); CREATININE 1.68 mg/dL (0.55-1.02); GLUCOSE 103 mg/dL (65-99); MAGNESIUM 1.7 mg/dL (2.0-2.9); POTASSIUM 3.8 mmol/L (3.5-5.1); SODIUM 145 mmol/L (136-145); TOTAL PROTEIN 6.3 g/dL (6.4-8.2); eGFR NON BLACK RACES 31 (>60)
[2024-07-19] MEDS ORDERED: CONSULT PHARMACY - POTASSIUM & MAGNESIUM XX SCH (08:00)
[2024-07-19] MEDS: NS 1,000 ML IV 1,000 ML with MAGNESIUM SULFATE 50% INJ VIAL 1 G IV SCH (08:43)
[2024-07-19] MEDS ORDERED: LASIX IVP ONE (09:56)
[2024-07-19] MEDS ORDERED: NS 1,000 ML IV 1,000 ML IV SCH (10:00)
[2024-07-19] MEDS ORDERED: PROTONIX TAB 40 MG PO SCH (10:00)
[2024-07-19] MEDS ORDERED: PROTONIX TAB 40 MG PO ONE (10:36)
[2024-07-19] MEDS: MAALOX or MYLANTA PO PRN (11:18)
[2024-07-19] MEDS: K-DUR TAB 20 MEQ PO SCH (11:18)
[2024-07-19] MEDS: PROTONIX TAB 40 MG PO SCH (11:18)
[2024-07-19] MEDS: LASIX IVP ONE (11:18)
[2024-07-19] MEDS: APRESOLINE TAB 25 MG PO SCH ×2 (11:19→21:07)
[2024-07-19] MEDS ORDERED: APRESOLINE INJ 20 MG VIAL ONE (17:20)
[2024-07-19 17:30] VITALS: O2SAT 100
[2024-07-19] MEDS: APRESOLINE INJ 20 MG VIAL IVP ONE (17:41)
[2024-07-19] MEDS: LOPRESSOR TAB 25 MG PO SCH (20:40)
[2024-07-19] MEDS: EXELON PO SCH (20:41)
[2024-07-19] MEDS: NEURONTIN CAP 100 MG PO SCH (20:41)
[2024-07-19] MEDS: MYSOLINE PO SCH (20:41)
[2024-07-20] MEDS: APRESOLINE INJ 20 MG VIAL IVP PRN (03:07)
[2024-07-20 04:13] VITALS: PULSE 72; RESP 19
[2024-07-20 04:29] LABS: BASOPHILS # (AUTO) 0.1 X10^3/uL (0.0-0.1); BASOPHILS % (AUTO) 0.9 % (0.2-1.0); EOSINOPHILS # (AUTO) 0.3 x10^3/uL (0.0-0.2); EOSINOPHILS % (AUTO) 4.8 % (0.9-2.9); HEMATOCRIT 29.6 % (36.0-47.0); HEMOGLOBIN 9.8 g/dL (12.0-16.0); LYMPHOCYTES # (AUTO) 0.8 X10^3/uL (1.3-2.9); LYMPHOCYTES % (AUTO) 13.5 % (21.0-51.0); MEAN CORPUSCULAR HEMOGLOBIN 30.7 pg (27.0-34.0); MEAN CORPUSCULAR HGB CONC 33.2 g/dL (33.0-35.0); MEAN CORPUSCULAR VOLUME 92.5 fL (80.0-100.0); MEAN PLATELET VOLUME 8.8 fL (7.4-11.0); MONOCYTES # (AUTO) 0.4 x10^3/uL (0.3-0.8); MONOCYTES % (AUTO) 6.8 % (0.0-13.0); NEUTROPHILS # (AUTO) 4.6 x10^3/uL (2.2-4.8); PLATELET COUNT 214 X10^3/uL (150.0-450.0); WHITE BLOOD COUNT 6.2 X10^3/uL (3.6-10.0)
[2024-07-20 04:37] LABS: ALANINE AMINOTRANSFERASE 7 Units/L (12-78); ALBUMIN 1.9 g/dL (3.4-5.0); ALKALINE PHOSPHATASE 90 Units/L (46-116); ASPARTATE AMINO TRANSFERASE 11 Units/L (15-37); BLOOD UREA NITROGEN 35 mg/dL (7-18); CARBON DIOXIDE 29.6 mmol/L (21-32); CHLORIDE 108 mmol/L (98-107); COR CA(FOR HYPOALB) 9.7 mg/dL (8.5-10.1); CREATININE 1.33 mg/dL (0.55-1.02); GLUCOSE 107 mg/dL (65-99); MAGNESIUM 1.6 mg/dL (2.0-2.9); POTASSIUM 3.4 mmol/L (3.5-5.1); SODIUM 143 mmol/L (136-145); TOTAL PROTEIN 6.2 g/dL (6.4-8.2); eGFR NON BLACK RACES 40 (>60)
[2024-07-20 05:41] VITALS: BP 173/72
[2024-07-20] MEDS ORDERED: CONSULT PHARMACY - POTASSIUM & MAGNESIUM XX SCH (07:00)
[2024-07-20 08:09] VITALS: TEMP 98.4
[2024-07-20] MEDS: K-DUR TAB 20 MEQ PO SCH (08:58)
[2024-07-20] MEDS: LASIX IVP ONE (08:58)
[2024-07-20] MEDS ORDERED: MAG-OX TAB PO SCH (09:00)
[2024-07-20] MEDS ORDERED: K-DUR TAB 20 MEQ PO SCH (09:00)
--- NOTE | 2024-07-20 09:36 | RAD ---
EXAM:Portable AP chestHISTORY:CHF SOBCOMPARISON:07/18/2024FINDINGS:Stable heart size with clear lungs and pleural spaces. There is no definite pneumonia, pulmonary edema or pleural fluid.IMPRESSION:No change or acute findings demonstrated.THIS IS AN ELECTRONICALLY VERIFIED FINAL [id number]/2024 9:33 AM - Electronically signed by Randall Powell MD
[2024-07-20] MEDS: NS + KCL 20 MEQ/L 1,000 ML with MAGNESIUM SULFATE 50% INJ VIAL 2 G IV SCH (10:03)
== END 2024-07-20 11:00 | DRG 683 ==
LOC: ICU → OBSVTOIN 15:22
PROVIDERS: ADMIT Internal Medicine; ATTEND Internal Medicine
DX: Z16.11 Resistance to penicillins; N17.8 Other acute kidney failure; R29.6 Repeated falls; E86.0 Dehydration; E83.42 Hypomagnesemia; Z16.23 Resistance to quinolones and fluoroquinolones; E11.65 Type 2 diabetes mellitus with hyperglycemia; R00.1 Bradycardia, unspecified; R06.02 Shortness of breath; R41.82 Altered mental status, unspecified; E78.5 Hyperlipidemia, unspecified; N39.0 Urinary tract infection, site not specified; B96.29 Other Escherichia coli [E. coli] as the cause of diseases classified elsewhere; Z16.29 Resistance to other single specified antibiotic; I10 Essential (primary) hypertension

== ENCOUNTER 2024-11-25 16:02 | Inpatient (IN) ==
--- NOTE | 2024-11-25 16:30 | DR.EXTPAIN ---
HPI Time seen Time Seen by Provider: 11/25/24 16:08 PCP Primary Care Physician: krysta dawson HPI Comment HPI Comment: History was below. Complaint/Symptoms Chief Complaint:: Patient states for the last couple of weeks she has been putting on water weight and over the past 3-4 days it has gotten worse to where she not able to ambulate with her walker like she has been and she has been urinating very little. Patient denies any sob. Patient last seen her kidney dr and was told her kidney was only working 30%. COVID-19 Coronavirus risk:travel/contact w/high risk person: No Has patient experienced Coronavirus symptoms: No Nurses notes reviewed Nurses Notes Review: Yes Source History Provided: Patient Mode of arrival Mode of Arrival: Wheelchair Timing Onset of Chief Complaint: 11/07/24 PMH PMH Past Medical History: Yes Past Medical History: Anemia, Arthritis, CHF, COPD, Dementia, Depression, Diabetes, Dyslipidemia, GERD, Gout, Hypertension, Hypothyroidism, Renal Disease and Sleep Apnea Past Surgical History: Yes Surgical History: Appendectomy, Cholecystectomy, Hysterectomy and Tonsillectomy Past Surgical History Comment: cataracts Family History History of Family Medical Conditions: Yes Family Medical History: Diabetes Mellitus and Cancer Social History Does patient currently use any type of tobacco product: No Have you used tobacco products in the last 12 months: No Type of Tobacco Use: None Does any household member use tobacco: No Alcohol Use: None Do you use any recreational Drugs:: No Lives With: Family Lives Where: Home Travel Risk Coronavirus risk:travel/contact w/high risk person: No Has patient experienced Coronavirus symptoms: No Infectious screening In the last 2 months have you had wt loss of >10#?: NO Have you had fever, night sweats or hemotysis?: No Have you traveled outside the country in the last 6 months?: No Isolation: Standard ROS Review of Systems Constitutional: No Symptoms Reported Eyes: No Symptoms Reported ENTM: No Symptoms Reported Respiratoy: No Symptoms Reported Cardiovascular: Edema (4 PLUS LOWER EXTREMITY EDEMA.); negative Chest Pain Gastrointestinal/Abdominal: No Symptoms Reported; negative Abdominal Pain, Nausea or Vomiting Genitourinary: No Symptoms Reported; negative Dysuria Neurological: Paresthesia; negative Headache or Dizziness Musculoskeletal: Hip (PAIN AND SWELLING THIGHS), Leg (PAIN AND SWELLING LEGS), Ankle (PAIN AND SWELLING ANKLE) and Foot (PAIN AND SWELLING FEET. FEET) Integumentary: No Symptoms Reported Hematologic/Lymphatic: No Symptoms Reported and Easy Bruising Endocrine: No Symptoms Reported; negative Increased Thirst or Increased Urine Psychiatric: No Symptoms Reported All Other Systems: Reviewed and Negative PE Vital Signs Vitals: Vital Signs Temperature 97.5 F Pulse Rate 62 Pulse Rate 63 Pulse Rate 59 Pulse Rate 58 Pulse Rate 63 Pulse Rate 60 Pulse Rate 60 Pulse Rate 59 Pulse Rate 58 Pulse Rate 57 Pulse Rate 56 Pulse Rate 57 Pulse Rate 54 Pulse Rate 55 Pulse Rate 53 Pulse Rate 58 Respiratory Rate 14 Blood Pressure 163/67 Blood Pressure 163/67 Blood Pressure 163/67 Blood Pressure 163/67 Blood Pressure 167/74 Blood Pressure 172/70 Blood Pressure 189/75 Blood Pressure 189/75 Blood Pressure 177/73 Blood Pressure 146/63 Blood Pressure 135/57 Blood Pressure 170/73 Blood Pressure 147/71 Blood Pressure 138/60 O2 Sat by Pulse Oximetry 91 O2 Sat by Pulse Oximetry 92 O2 Sat by Pulse Oximetry 91 O2 Sat by Pulse Oximetry 93 O2 Sat by Pulse Oximetry 92 O2 Sat by Pulse Oximetry 91 O2 Sat by Pulse Oximetry 92 O2 Sat by Pulse Oximetry 93 O2 Sat by Pulse Oximetry 95 O2 Sat by Pulse Oximetry 95 O2 Sat by Pulse Oximetry 96 O2 Sat by Pulse Oximetry 94 O2 Sat by Pulse Oximetry 97 O2 Sat by Pulse Oximetry 95 O2 Sat by Pulse Oximetry 94 O2 Sat by Pulse Oximetry 96 General Limitations: No Limitations General Appearance: Alert and In Distress (ON EXERTION. ) Head Head Exam: Normal Inspection Eyes Eye exam: Normal Appearance and Scleral Icterus; negative Conjunctival Injection ENT ENT Exam: Normal Exam, Normal Oropharynx, Normal External Ear Exam and TM's Normal Bilaterally Neck Neck Exam: Normal Inspection and Trachea Midline; negative Tenderness Chest Chest Inspection: Normal Inspection and Symmetric Chest Wall Rise; negative Tenderness Respiratory Respiratory Exam: Normal Lung Sounds Bilat; negative Accessory Muscle Use, Chest Wall Tenderness or Respiratory Distress Cardiovascular Cardiovascular Exam: Regular Rate, Normal Rhythm, Normal Heart Sounds, Systolic Murmur, Diastolic Murmur and +S3 Abdominal Exam Abdominal Exam: Normal Inspection, Normal Bowel Sounds and Soft; negative Tenderness Extremities Extremities Exam: Edema (4 plus pitting edema legs.) Back Back Exam: Normal Inspection; negative (R) CVA Tenderness or (L) CVA Tenderness Neurological Neurological Exam: Alert and Oriented X3; negative Motor Sensory Deficit Psychiatric Psychiatric Exam: Normal Affect and Normal Mood Skin Skin Exam: Other (4 plus edema legs) MDM Differential Diagnosis Differential Diagnosis: Other (CHF, edema legs) COURSE Treatment Treatment: See orders done while patient was in ER. Labs, EKG and X-ray discussed. Patient admitted to hospital for further management. Consultation Consultation Comments: DISCUSSED PATIENT WITH DR. JACKSON. HE WILL ADMIT PATIENT. Education/Counseling Education/Counseling: Patient and Family Educated On: Diagnosis ROR Labs Reviewed Laboratory Results Reviewed?: Yes 11/25/24 17:11 11/25/24 17:11 Laboratory: WBC 7.5 X10^3/uL (3.6-10.0) 11/25/24 17:11 RBC 3.74 X10^6/uL (3.5-5.4) 11/25/24 17:11 Hgb 10.5 g/dL (12.0-16.0) L 11/25/24 17:11 Hct 33.1 % (36.0-47.0) L 11/25/24 17:11 MCV 88.6 fL (80.0-100.0) 11/25/24 17:11 MCH 28.1 pg (27.0-34.0) 11/25/24 17:11 MCHC 31.8 g/dL (33.0-35.0) L 11/25/24 17:11 RDW 15.1 % (11.6-16.5) 11/25/24 17:11 Plt Count 231 X10^3/uL (150.0-450.0) 11/25/24 17:11 MPV 8.9 fL (7.4-11.0) 11/25/24 17:11 Neut % (Auto) 69.3 % (42.0-75.0) 11/25/24 17:11 Lymph % (Auto) 12.7 % (21.0-51.0) L 11/25/24 17:11 [place] % (Auto) 13.1 % (0.0-13.0) H 11/25/24 17:11 Eos % (Auto) 3.9 % (0.9-2.9) H 11/25/24 17:11 Baso % (Auto) 1.0 % (0.2-1.0) 11/25/24 17:11 Neut # (Auto) 5.2 x10^3/uL (2.2-4.8) H 11/25/24 17:11 Lymph # (Auto) 1.0 X10^3/uL (1.3-2.9) L 11/25/24 17:11 [place] # (Auto) 1.0 x10^3/uL (0.3-0.8) H 11/25/24 17:11 Eos # (Auto) 0.3 x10^3/uL (0.0-0.2) H 11/25/24 17:11 Baso # (Auto) 0.1 X10^3/uL (0.0-0.1) 11/25/24 17:11 Absolute Nucleated RBC 0.0 /100WBC 11/25/24 17:11 Sodium 138 mmol/L (136-145) 11/25/24 17:11 Corrected Sodium TNP 11/25/24 17:11 Potassium 4.2 mmol/L (3.5-5.1) 11/25/24 17:11 Chloride 100 mmol/L (98-107) 11/25/24 17:11 Carbon Dioxide 30.0 mmol/L (21-32) 11/25/24 17:11 BUN 45 mg/dL (7-18) H 11/25/24 17:11 Creatinine 2.26 mg/dL (0.55-1.02) H 11/25/24 17:11 Est GFR (MDRD) Af Amer 27 (>60) L 11/25/24 17:11 Est GFR (MDRD) Non-Af 22 (>60) L 11/25/24 17:11 Glucose 103 mg/dL (65-99) H 11/25/24 17:11 Uric Acid 7.3 mg/dL (2.6-6.0) H 11/25/24 17:11 Calcium 7.8 mg/dL (8.5-10.1) L 11/25/24 17:11 Corrected Calcium 9.1 mg/dL (8.5-10.1) 11/25/24 17:11 Total Bilirubin 0.20 mg/dL (0.2-1.0) 11/25/24 17:11 AST 14 Units/L (15-37) L 11/25/24 17:11 ALT 6 Units/L (12-78) L 11/25/24 17:11 Alkaline Phosphatase 121 Units/L (46-116) H 11/25/24 17:11 Creatine Kinase 50 Units/L (26-192) 11/25/24 17:11 Troponin I High Sens 20.3 ng/L (4.0-60.0) 11/25/24 17:11 B-Natriuretic Peptide 660 pg/mL (0-79) H 11/25/24 17:11 Total Protein 7.7 g/dL (6.4-8.2) 11/25/24 17:11 Albumin 2.4 g/dL (3.4-5.0) L 11/25/24 17:11 Globulin 5.3 g/dL (2.5-4.5) H 11/25/24 17:11 Albumin/Globulin Ratio 0.5 Ratio (1.1-2.1) L 11/25/24 17:11 Specimen Type Catherized urine 11/25/24 16:48 Urine Color Yellow (YELLOW) 11/25/24 16:48 Urine Appearance Clear (CLEAR) 11/25/24 16:48 Urine pH 5.0 (5.0 - 8.0) 11/25/24 16:48 Ur Specific [place] 1.015 (1.000-1.030) 11/25/24 16:48 Urine Protein 2+ (NEGATIVE) 11/25/24 16:48 Urine Glucose (UA) Negative (NEGATIVE) 11/25/24 16:48 Urine Ketones Negative (NEGATIVE) 11/25/24 16:48 Urine Blood Negative (NEGATIVE) 11/25/24 16:48 Urine Nitrite Negative (NEGATIVE) 11/25/24 16:48 Urine Bilirubin Negative (NEGATIVE) 11/25/24 16:48 Urine Urobilinogen Normal (NORMAL) 11/25/24 16:48 Ur Leukocyte Esterase Negative (NEGATIVE) 11/25/24 16:48 Urine RBC None seen /HPF (0-3) 11/25/24 16:48 Urine WBC None seen /HPF (0-5) 11/25/24 16:48 Ur Squamous Epith Cells Rare /HPF (NEGATIVE) 11/25/24 16:48 Urine Bacteria Negative /HPF (NEGATIVE) 11/25/24 16:48 Ur Culture Indicated? No/not indicated 04/19/25 16:48 XRAY XRAY Interpreted by: Radiologist (Report noted.) and Self EKG Rate: 59 [place]: Normal Block: LBBB (WIDE QRS COMPLES.) Hypertrophy: None ST: Normal Opioid Opioid Risk Tool Age (Danny box if 16-45): No History of Preadolescent Sexual Abuse: No Total: 0 Total Score Risk Category: Low Risk Copyright: Dipak MACKAY predicting aberrant behaviors Discharge Plan Diagnosis Discharge Problem: Bilateral edema of lower extremity CHF (congestive heart failure) Qualifiers: Heart failure type: combined systolic and diastolic Heart failure chronicity: acute on chronic Qualified Code(s): I50.43 - Acute on chronic combined systolic (congestive) and diastolic (congestive) heart failure Discharge Plan Patient Disposition: ADMITTED INPATIENT Condition: Stable
--- NOTE | 2024-11-25 16:55 | EKG ---
Test Reason : CHF Blood Pressure : */* mmHG Vent. Rate : 59 BPM Atrial Rate : * BPM P-R Int : * ms QRS Dur : 128 ms QT Int : 478 ms P-R-T Axes : * -60 71 degrees QTc Int : 473 ms Normal sinus rhythm with pacs Left bundle branch block Left axis deviation Abnormal ECG When compared with ECG of 07-SEP-2024 19:45, No significant change was found Confirmed by Arben Mills MD ([id number]) on 11/26/2024 6:30:25 AM Referred By: Confirmed By: Arben Mills MD
[2024-11-25] MEDS ORDERED: LASIX IVP ONE (17:08)
[2024-11-25] MEDS: LASIX IVP ONE (17:15)
[2024-11-25 17:17] LABS: BASOPHILS # (AUTO) 0.1 X10^3/uL (0.0-0.1); EOSINOPHILS # (AUTO) 0.3 x10^3/uL (0.0-0.2); EOSINOPHILS % (AUTO) 3.9 % (0.9-2.9); HEMATOCRIT 33.1 % (36.0-47.0); HEMOGLOBIN 10.5 g/dL (12.0-16.0); LYMPHOCYTES % (AUTO) 12.7 % (21.0-51.0); MEAN CORPUSCULAR HEMOGLOBIN 28.1 pg (27.0-34.0); MEAN CORPUSCULAR HGB CONC 31.8 g/dL (33.0-35.0); MEAN CORPUSCULAR VOLUME 88.6 fL (80.0-100.0); MEAN PLATELET VOLUME 8.9 fL (7.4-11.0); MONOCYTES % (AUTO) 13.1 % (0.0-13.0); NEUTROPHILS # (AUTO) 5.2 x10^3/uL (2.2-4.8); NEUTROPHILS % (AUTO) 69.3 % (42.0-75.0); PLATELET COUNT 231 X10^3/uL (150.0-450.0); RED BLOOD COUNT 3.74 X10^6/uL (3.5-5.4); RED CELL DISTRIBUTION WIDTH 15.1 % (11.6-16.5); WHITE BLOOD COUNT 7.5 X10^3/uL (3.6-10.0)
[2024-11-25 17:18] LABS: BILIRUBIN,URINE NEGATIVE (NEGATIVE); BLOOD/HEMOGLOBIN,URINE NEGATIVE (NEGATIVE); GLUCOSE, URINE NEGATIVE (NEGATIVE); KETONES,URINE NEGATIVE (NEGATIVE); LEUKOCYTE ESTERASE ,URINE NEGATIVE (NEGATIVE); NITRITES,URINE NEGATIVE (NEGATIVE); PROTEIN,URINE 2+ (NEGATIVE); UROBILINOGEN,URINE NORMAL (NORMAL)
[2024-11-25 17:28] LABS: APPEARANCE,URINE CLEAR (CLEAR); BACTERIA,URINE NEGATIVE /HPF (NEGATIVE); COLOR,URINE YELLOW (YELLOW); RBC,URINE NONE SEEN /HPF (0-3); SQUAMOUS EPITHELIAL CELL,UR RARE /HPF (NEGATIVE)
[2024-11-25 17:39] LABS: ALANINE AMINOTRANSFERASE 6 Units/L (12-78); ALBUMIN 2.4 g/dL (3.4-5.0); ALKALINE PHOSPHATASE 121 Units/L (46-116); ASPARTATE AMINO TRANSFERASE 14 Units/L (15-37); BLOOD UREA NITROGEN 45 mg/dL (7-18); CALCIUM 7.8 mg/dL (8.5-10.1); CHLORIDE 100 mmol/L (98-107); COR CA(FOR HYPOALB) 9.1 mg/dL (8.5-10.1); CREATINE KINASE 50 Units/L (26-192); CREATININE 2.26 mg/dL (0.55-1.02); GLUCOSE 103 mg/dL (65-99); POTASSIUM 4.2 mmol/L (3.5-5.1); SODIUM 138 mmol/L (136-145); TOTAL PROTEIN 7.7 g/dL (6.4-8.2); URIC ACID 7.3 mg/dL (2.6-6.0); eGFR NON BLACK RACES 22 (>60)
--- NOTE | 2024-11-25 18:42 | RAD ---
EXAM:CHESTHISTORY:SOB;COMPARISON: br.br.br.br.br for interpretation.FINDINGS:The cardiomediastinal silhouette is within normal limits. Lungs show no focal consolidation, pneumothorax, or pleural fluid.IMPRESSION:No acute cardiopulmonary process.THIS IS AN ELECTRONICALLY VERIFIED FINAL REPORT11/25/2024 6:38 PM - Electronically signed by Davie Christie MD
[2024-11-25 21:55] VITALS: BMI 39.9
[2024-11-25] MEDS ORDERED: PATIENT'S HOME MEDICATION (Hydralazine 50 mg tablet) PO SCH (22:00)
[2024-11-25] MEDS: PROTONIX TAB 40 MG PO SCH (22:07)
[2024-11-25] MEDS: ATARAX TAB 25 MG PO SCH (22:07)
[2024-11-25] MEDS: LOPRESSOR TAB 25 MG PO SCH (22:07)
[2024-11-25] MEDS: PRAVACHOL PO SCH (22:07)
[2024-11-25] MEDS: NEURONTIN CAP 300 MG PO SCH (22:07)
[2024-11-25] MEDS: MYSOLINE PO SCH (22:07)
[2024-11-25] MEDS: APRESOLINE TAB 25 MG PO SCH (22:42)
[2024-11-26] MEDS ORDERED: NovoLIN R (or HumuLIN R) SUBCUT PRN (04:52)
[2024-11-26 05:54] LABS: BASOPHILS # (AUTO) 0.1 X10^3/uL (0.0-0.1); EOSINOPHILS # (AUTO) 0.1 x10^3/uL (0.0-0.2); EOSINOPHILS % (AUTO) 2.4 % (0.9-2.9); HEMATOCRIT 27.9 % (36.0-47.0); HEMOGLOBIN 9.1 g/dL (12.0-16.0); LYMPHOCYTES # (AUTO) 0.7 X10^3/uL (1.3-2.9); LYMPHOCYTES % (AUTO) 11.5 % (21.0-51.0); MEAN CORPUSCULAR HEMOGLOBIN 28.6 pg (27.0-34.0); MEAN CORPUSCULAR HGB CONC 32.4 g/dL (33.0-35.0); MEAN PLATELET VOLUME 9.3 fL (7.4-11.0); MONOCYTES # (AUTO) 0.7 x10^3/uL (0.3-0.8); MONOCYTES % (AUTO) 11.3 % (0.0-13.0); NEUTROPHILS # (AUTO) 4.6 x10^3/uL (2.2-4.8); NEUTROPHILS % (AUTO) 73.8 % (42.0-75.0); PLATELET COUNT 190 X10^3/uL (150.0-450.0); RED BLOOD COUNT 3.17 X10^6/uL (3.5-5.4); WHITE BLOOD COUNT 6.2 X10^3/uL (3.6-10.0)
[2024-11-26 06:05] LABS: MAGNESIUM 1.4 mg/dL (2.0-2.9); POTASSIUM 4.3 mmol/L (3.5-5.1)
[2024-11-26 06:44] LABS: CALCIUM 7.5 mg/dL (8.5-10.1); CARBON DIOXIDE 31.5 mmol/L (21-32); COR CA(FOR HYPOALB) 9.1 mg/dL (8.5-10.1); CREATININE 2.07 mg/dL (0.55-1.02); TOTAL PROTEIN 6.8 g/dL (6.4-8.2)
[2024-11-26] MEDS ORDERED: CONSULT PHARMACY - POTASSIUM & MAGNESIUM XX SCH (07:00)
--- NOTE | 2024-11-26 09:11 | DR.H&P ---
H&P History & Physical for Day of: H&P Date: 11/25/24 Chief Complaint Chief Complaint: severe lower leg swelling History of Present Illness History of Present Illness: Patient IS 84 WF, ER admission that co the last couple of weeks she has been putting on water weight and over the past 3-4 days it has gotten worse to where she not able to ambulate with her walker like she has been and she has been urinating very little. Patient denies any sob. Patient last seen her kidney dr and was told her kidney was only working 30%. Past Medical History Past Medical History: Anemia, Arthritis, CHF, COPD, Dementia, Depression, Diabetes, Dyslipidemia, GERD, Gout, Hypertension, Hypothyroidism, Renal Disease and Sleep Apnea Past Surgical History Surgical History: Appendectomy, Cholecystectomy, Hysterectomy and Tonsillectomy Family History Family Medical History: Diabetes Mellitus Social History Does patient currently use any type of tobacco product: No Have you used tobacco products in the last 12 months: No Type of Tobacco Use: None Does any household member use tobacco: No Alcohol Use: None Drug Use: None Medications Home Medications: Home Medications Medication Instructions Recorded Confirmed Type chlorthalidone 25 mg tablet 25 mg PO QDAY 07/03/24 11/25/24 History levothyroxine 175 mcg tablet 175 mcg PO QDAY 07/03/24 11/25/24 History metoprolol tartrate 25 mg tablet 25 mg PO BID 07/03/24 11/25/24 History pantoprazole 40 mg tablet,delayed 40 mg PO BID 07/03/24 11/25/24 History release pravastatin 40 mg tablet 40 mg PO QPM 07/03/24 11/25/24 History primidone 50 mg tablet 50 mg PO BID 07/03/24 11/25/24 History venlafaxine 75 mg capsule,extended 75 mg PO QDAY 07/03/24 11/25/24 History release 24 hr gabapentin 300 mg capsule 300 mg PO QPM 10/10/24 11/25/24 History hydralazine 50 mg tablet 50 mg PO TID 10/10/24 11/25/24 History hydroxyzine HCl 25 mg tablet 25 mg PO BID 10/10/24 11/25/24 History allopurinol 100 mg tablet 100 mg PO QDAY 11/25/24 11/25/24 History furosemide 40 mg tablet 40 mg PO QDAY PRN 11/25/24 11/25/24 History gabapentin 100 mg capsule 100 mg PO DAILY 11/25/24 11/25/24 History Allergies Allergies Allergy/AdvReac Type Severity Reaction Status Date / Time acetazolamide Allergy Verified 11/25/24 16:14 Labs 11/26/24 05:19 11/26/24 05:19 Labs: Laboratory WBC 6.2 X10^3/uL (3.6-10.0) 11/26/24 05:19 RBC 3.17 X10^6/uL (3.5-5.4) L 11/26/24 05:19 Hgb 9.1 g/dL (12.0-16.0) L 11/26/24 05:19 Hct 27.9 % (36.0-47.0) L 11/26/24 05:19 MCV 88.0 fL (80.0-100.0) 11/26/24 05:19 MCH 28.6 pg (27.0-34.0) 11/26/24 05:19 MCHC 32.4 g/dL (33.0-35.0) L 11/26/24 05:19 RDW 15.0 % (11.6-16.5) 11/26/24 05:19 Plt Count 190 X10^3/uL (150.0-450.0) 11/26/24 05:19 MPV 9.3 fL (7.4-11.0) 11/26/24 05:19 Neut % (Auto) 73.8 % (42.0-75.0) 11/26/24 05:19 Lymph % (Auto) 11.5 % (21.0-51.0) L 11/26/24 05:19 [place] % (Auto) 11.3 % (0.0-13.0) 11/26/24 05:19 Eos % (Auto) 2.4 % (0.9-2.9) 11/26/24 05:19 Baso % (Auto) 1.0 % (0.2-1.0) 11/26/24 05:19 Neut # (Auto) 4.6 x10^3/uL (2.2-4.8) 11/26/24 05:19 Lymph # (Auto) 0.7 X10^3/uL (1.3-2.9) L 11/26/24 05:19 [place] # (Auto) 0.7 x10^3/uL (0.3-0.8) 11/26/24 05:19 Eos # (Auto) 0.1 x10^3/uL (0.0-0.2) 11/26/24 05:19 Baso # (Auto) 0.1 X10^3/uL (0.0-0.1) 11/26/24 05:19 Absolute Nucleated RBC 0.0 /100WBC 11/26/24 05:19 Sodium 142 mmol/L (136-145) 11/26/24 05:19 Corrected Sodium 142 mmol/L (136-145) 11/26/24 05:19 Potassium 4.3 mmol/L (3.5-5.1) 11/26/24 05:19 Chloride 103 mmol/L (98-107) 11/26/24 05:19 Carbon Dioxide 31.5 mmol/L (21-32) 11/26/24 05:19 BUN 45 mg/dL (7-18) H 11/26/24 05:19 Creatinine 2.07 mg/dL (0.55-1.02) H 11/26/24 05:19 Est GFR (MDRD) Af Amer 29 (>60) L 11/26/24 05:19 Est GFR (MDRD) Non-Af 24 (>60) L 11/26/24 05:19 Glucose 116 mg/dL (65-99) H 11/26/24 05:19 POC Glucose (mg/dL) 119 mg/dL (65-99) H 11/26/24 05:02 Uric Acid 7.3 mg/dL (2.6-6.0) H 11/25/24 17:11 Calcium 7.5 mg/dL (8.5-10.1) L 11/26/24 05:19 Corrected Calcium 9.1 mg/dL (8.5-10.1) 11/26/24 05:19 Magnesium 1.4 mg/dL (2.0-2.9) L 11/26/24 05:19 Total Bilirubin 0.20 mg/dL (0.2-1.0) 11/26/24 05:19 AST 11 Units/L (15-37) L 11/26/24 05:19 ALT 8 Units/L (12-78) L 11/26/24 05:19 Alkaline Phosphatase 102 Units/L (46-116) 11/26/24 05:19 Creatine Kinase 50 Units/L (26-192) 11/25/24 17:11 Troponin I High Sens 20.3 ng/L (4.0-60.0) 11/25/24 17:11 B-Natriuretic Peptide 660 pg/mL (0-79) H 11/25/24 17:11 Total Protein 6.8 g/dL (6.4-8.2) 11/26/24 05:19 Albumin 2.0 g/dL (3.4-5.0) L 11/26/24 05:19 Globulin 4.8 g/dL (2.5-4.5) H 11/26/24 05:19 Albumin/Globulin Ratio 0.4 Ratio (1.1-2.1) L 11/26/24 05:19 Specimen Type Catherized urine 11/25/24 16:48 Urine Color Yellow (YELLOW) 11/25/24 16:48 Urine Appearance Clear (CLEAR) 11/25/24 16:48 Urine pH 5.0 (5.0 - 8.0) 11/25/24 16:48 Ur Specific [place] 1.015 (1.000-1.030) 11/25/24 16:48 Urine Protein 2+ (NEGATIVE) 11/25/24 16:48 Urine Glucose (UA) Negative (NEGATIVE) 11/25/24 16:48 Urine Ketones Negative (NEGATIVE) 11/25/24 16:48 Urine Blood Negative (NEGATIVE) 11/25/24 16:48 Urine Nitrite Negative (NEGATIVE) 11/25/24 16:48 Urine Bilirubin Negative (NEGATIVE) 11/25/24 16:48 Urine Urobilinogen Normal (NORMAL) 11/25/24 16:48 Ur Leukocyte Esterase Negative (NEGATIVE) 11/25/24 16:48 Urine RBC None seen /HPF (0-3) 11/25/24 16:48 Urine WBC None seen /HPF (0-5) 11/25/24 16:48 Ur Squamous Epith Cells Rare /HPF (NEGATIVE) 11/25/24 16:48 Urine Bacteria Negative /HPF (NEGATIVE) 11/25/24 16:48 Ur Culture Indicated? No/not indicated 11/25/24 16:48 Review of Systems Constitutional: Weakness Eyes: No Symptoms Reported ENT: No Symptoms Reported Respiratory: denies SOB with Excertion Cardiovascular: Edema Gastrointestinal: No Symptoms Reported Genitourinary: Frequency Musculoskeletal: Leg Pain Skin: No Symptoms Reported Neurological: No Symptoms Reported Physical Exam Vital Signs: Vital Signs Temperature 98.3 F Pulse Rate [Apical] 60 Respiratory Rate 16 Blood Pressure [Right Arm] 113/51 O2 Sat by Pulse Oximetry 97 Oriented: Normal Eyes: Normal Ear: Normal Nose: Normal Throat: Normal Respiratory: Diminished Throughout Cardiovascular: Edema : Normal Palpation: Normal Tenderness: Normal Skin: Decreased [place] Musculoskeletal: Back:Lumbar Psychiatric: Normal Mood Description: Calm Affect: Normal Speech Pattern: Clear and Appropriate Assessment/Plan (1) CHF (congestive heart failure): Qualifiers: Heart failure chronicity: acute on chronic Heart failure type: combined systolic and diastolic Qualified Code(s): I50.43 - Acute on chronic combined systolic (congestive) and diastolic (congestive) heart failure Status: Acute Plan: ADMIT, STRICT I&OS BP CONTROL, CE, CXR ON ADMISSION PRN SUPPLEMENTAL O2 (2) Bilateral edema of lower extremity: Status: Acute (3) CKD (chronic kidney disease): Status: Acute (4) Hypertension: Qualifiers: Hypertension type: primary hypertension Qualified Code(s): I10 - Essential (primary) hypertension Status: Acute (5) Hypomagnesemia: Status: Acute
[2024-11-26] MEDS: SYNTHROID 175 mcg TAB PO SCH (10:12)
[2024-11-26] MEDS: MAG-OX TAB PO SCH (10:12)
[2024-11-26] MEDS: LASIX IVP SCH (10:14)
[2024-11-26] MEDS: NEURONTIN CAP 100 MG PO SCH (10:14)
[2024-11-26] MEDS: EFFEXOR XR 75 MG CAP 24-HR PO SCH (10:14)
[2024-11-26] MEDS: ZYLOPRIM PO SCH (10:14)
[2024-11-26] MEDS: CHLORTHALIDONE PO SCH (10:15)
[2024-11-26] MEDS: NS 1,000 ML IV 1,000 ML IV SCH (12:29)
--- NOTE | 2024-11-26 13:38 | RAD ---
EXAM:CHEST, 1 VIEWHISTORY:chf, sob;COMPARISON:11/25/2024FINDINGS:The cardiomediastinal silhouette is widened but stable.No acute airspace disease. No pneumothorax or effusion.No acute osseous abnormality.IMPRESSION:No acute cardiopulmonary disease.THIS IS AN ELECTRONICALLY VERIFIED FINAL REPORT11/26/2024 1:34 PM - Electronically signed by Sheldon Pablo MD
[2024-11-26] MEDS ORDERED: SNACK - Diabetic Appropriate PO SCH (20:00)
[2024-11-26] MEDS: ULTRAM PO PRN (20:09)
--- NOTE | 2024-11-26 20:21 | EKG ---
Test Reason : Chest pain Blood Pressure : */* mmHG Vent. Rate : 74 BPM Atrial Rate : * BPM P-R Int : * ms QRS Dur : 134 ms QT Int : 414 ms P-R-T Axes : * -43 65 degrees QTc Int : 459 ms Normal sinus rhythm Left axis deviation Left ventricular hypertrophy with QRS widening and repolarization abnormality ( R in aVL , Carrillo pr oduct ) Abnormal ECG When compared with ECG of 25-NOV-2024 16:51, pacs are gone Confirmed by Arben Mills MD ([id number]) on 11/27/2024 7:24:16 AM Referred By: Confirmed By: Arben Mills MD
[2024-11-26] MEDS: NORCO 5/325 MG TAB PO PRN (21:07)
[2024-11-26] MEDS: RESTORIL CAP 15 MG PO PRN (23:05)
[2024-11-27 04:52] LABS: BASOPHILS # (AUTO) 0.1 X10^3/uL (0.0-0.1); BASOPHILS % (AUTO) 1.1 % (0.2-1.0); EOSINOPHILS # (AUTO) 0.2 x10^3/uL (0.0-0.2); EOSINOPHILS % (AUTO) 2.1 % (0.9-2.9); HEMATOCRIT 28.8 % (36.0-47.0); HEMOGLOBIN 9.3 g/dL (12.0-16.0); LYMPHOCYTES # (AUTO) 0.8 X10^3/uL (1.3-2.9); LYMPHOCYTES % (AUTO) 9.1 % (21.0-51.0); MEAN CORPUSCULAR HEMOGLOBIN 28.6 pg (27.0-34.0); MEAN CORPUSCULAR HGB CONC 32.3 g/dL (33.0-35.0); MEAN CORPUSCULAR VOLUME 88.6 fL (80.0-100.0); MEAN PLATELET VOLUME 9.2 fL (7.4-11.0); MONOCYTES # (AUTO) 1.1 x10^3/uL (0.3-0.8); MONOCYTES % (AUTO) 12.5 % (0.0-13.0); NEUTROPHILS # (AUTO) 6.5 x10^3/uL (2.2-4.8); NEUTROPHILS % (AUTO) 75.2 % (42.0-75.0); PLATELET COUNT 188 X10^3/uL (150.0-450.0); RED BLOOD COUNT 3.26 X10^6/uL (3.5-5.4); RED CELL DISTRIBUTION WIDTH 15.2 % (11.6-16.5); WHITE BLOOD COUNT 8.6 X10^3/uL (3.6-10.0)
[2024-11-27 05:11] LABS: ALANINE AMINOTRANSFERASE < 6 Units/L (12-78); ALBUMIN 2.1 g/dL (3.4-5.0); ALKALINE PHOSPHATASE 104 Units/L (46-116); ASPARTATE AMINO TRANSFERASE 13 Units/L (15-37); BLOOD UREA NITROGEN 47 mg/dL (7-18); CALCIUM 7.9 mg/dL (8.5-10.1); CARBON DIOXIDE 32.4 mmol/L (21-32); CHLORIDE 101 mmol/L (98-107); COR CA(FOR HYPOALB) 9.4 mg/dL (8.5-10.1); COR NA(FOR HYPERGLY) 140 mmol/L (136-145); CREATININE 1.98 mg/dL (0.55-1.02); GLUCOSE 113 mg/dL (65-99); MAGNESIUM 1.5 mg/dL (2.0-2.9); POTASSIUM 4.1 mmol/L (3.5-5.1); SODIUM 140 mmol/L (136-145); TOTAL PROTEIN 7.2 g/dL (6.4-8.2); eGFR NON BLACK RACES 26 (>60)
[2024-11-27] MEDS ORDERED: CONSULT PHARMACY - POTASSIUM & MAGNESIUM XX SCH (07:00)
[2024-11-27] MEDS: MAG-OX TAB PO ONE (08:24)
[2024-11-27] MEDS ORDERED: BUTT CREAM (COMPOUND) TOP PRN (17:18)
[2024-11-28 06:25] LABS: BASOPHILS % (AUTO) 0.8 % (0.2-1.0); EOSINOPHILS # (AUTO) 0.2 x10^3/uL (0.0-0.2); EOSINOPHILS % (AUTO) 4.7 % (0.9-2.9); HEMATOCRIT 28.9 % (36.0-47.0); HEMOGLOBIN 9.3 g/dL (12.0-16.0); LYMPHOCYTES # (AUTO) 0.9 X10^3/uL (1.3-2.9); LYMPHOCYTES % (AUTO) 18.5 % (21.0-51.0); MEAN CORPUSCULAR HEMOGLOBIN 28.4 pg (27.0-34.0); MEAN CORPUSCULAR HGB CONC 32.1 g/dL (33.0-35.0); MEAN CORPUSCULAR VOLUME 88.6 fL (80.0-100.0); MEAN PLATELET VOLUME 8.5 fL (7.4-11.0); MONOCYTES # (AUTO) 0.6 x10^3/uL (0.3-0.8); MONOCYTES % (AUTO) 12.4 % (0.0-13.0); NEUTROPHILS # (AUTO) 3.2 x10^3/uL (2.2-4.8); NEUTROPHILS % (AUTO) 63.6 % (42.0-75.0); PLATELET COUNT 195 X10^3/uL (150.0-450.0); RED BLOOD COUNT 3.27 X10^6/uL (3.5-5.4); WHITE BLOOD COUNT 5.1 X10^3/uL (3.6-10.0)
[2024-11-28 06:37] LABS: ALANINE AMINOTRANSFERASE 6 Units/L (12-78); ALBUMIN 1.9 g/dL (3.4-5.0); ALKALINE PHOSPHATASE 94 Units/L (46-116); ASPARTATE AMINO TRANSFERASE 13 Units/L (15-37); BLOOD UREA NITROGEN 48 mg/dL (7-18); CALCIUM 8.5 mg/dL (8.5-10.1); CARBON DIOXIDE 34.6 mmol/L (21-32); CHLORIDE 102 mmol/L (98-107); COR CA(FOR HYPOALB) 10.2 mg/dL (8.5-10.1); CREATININE 1.83 mg/dL (0.55-1.02); GLUCOSE 110 mg/dL (65-99); MAGNESIUM 1.6 mg/dL (2.0-2.9); SODIUM 140 mmol/L (136-145); TOTAL PROTEIN 6.8 g/dL (6.4-8.2); eGFR NON BLACK RACES 28 (>60)
--- NOTE | 2024-11-28 10:31 | EKG ---
Test Reason : chest pain Blood Pressure : */* mmHG Vent. Rate : 55 BPM Atrial Rate : 55 BPM P-R Int : 108 ms QRS Dur : 118 ms QT Int : 452 ms P-R-T Axes : 7 -53 37 degrees QTc Int : 432 ms Sinus bradycardia with short MT Left axis deviation Left ventricular hypertrophy with QRS widening ( R in aVL , [place] product ) Abnormal ECG When compared with ECG of 26-NOV-2024 19:57, MT interval has increased Confirmed by Arben Mills MD ([id number]) on 11/28/2024 5:45:12 PM Referred By: Confirmed By: Arben Mills MD
[2024-11-28] MEDS: CARAFATE ORAL SUSP PO SCH (10:45)
[2024-11-28] MEDS: LASIX IM ONE (10:48)
[2024-11-28] MEDS ORDERED: LOVENOX INJ 30 MG SYR SC SCH (11:00)
--- NOTE | 2024-11-28 16:44 | EKG ---
Test Reason : chest pain Blood Pressure : */* mmHG Vent. Rate : 68 BPM Atrial Rate : 68 BPM P-R Int : 112 ms QRS Dur : 128 ms QT Int : 442 ms P-R-T Axes : -5 -54 65 degrees QTc Int : 469 ms Sinus rhythm with premature atrial complexes Left axis deviation Left ventricular hypertrophy with QRS widening ( R in aVL , Carrillo product ) Cannot rule out Septal infarct , age undetermined Abnormal ECG When compared with ECG of 28-NOV-2024 10:08, (Unconfirmed) premature atrial complexes are now present Confirmed by Arben Mills MD ([id number]) on 11/28/2024 5:44:36 PM Referred By: Confirmed By: Arben Mills MD
--- NOTE | 2024-11-28 21:19 | EKG ---
Test Reason : chest pain Blood Pressure : */* mmHG Vent. Rate : 57 BPM Atrial Rate : 57 BPM P-R Int : 114 ms QRS Dur : 124 ms QT Int : 460 ms P-R-T Axes : 4 -55 62 degrees QTc Int : 447 ms Sinus bradycardia Left anterior fascicular block Left ventricular hypertrophy with QRS widening ( R in aVL , Carrillo product ) Abnormal ECG When compared with ECG of 28-NOV-2024 16:21, premature atrial complexes are no longer present Confirmed by Arben Mills MD ([id number]) on 11/29/2024 5:20:18 AM Referred By: Confirmed By: Arben Mills MD
[2024-11-29 05:54] LABS: BASOPHILS # (AUTO) 0.1 X10^3/uL (0.0-0.1); BASOPHILS % (AUTO) 1.1 % (0.2-1.0); EOSINOPHILS # (AUTO) 0.3 x10^3/uL (0.0-0.2); EOSINOPHILS % (AUTO) 5.6 % (0.9-2.9); HEMATOCRIT 24.4 % (36.0-47.0); LYMPHOCYTES # (AUTO) 0.9 X10^3/uL (1.3-2.9); LYMPHOCYTES % (AUTO) 17.5 % (21.0-51.0); MEAN CORPUSCULAR HEMOGLOBIN 28.7 pg (27.0-34.0); MEAN CORPUSCULAR HGB CONC 32.8 g/dL (33.0-35.0); MEAN CORPUSCULAR VOLUME 87.6 fL (80.0-100.0); MONOCYTES # (AUTO) 0.7 x10^3/uL (0.3-0.8); MONOCYTES % (AUTO) 14.8 % (0.0-13.0); PLATELET COUNT 193 X10^3/uL (150.0-450.0); RED BLOOD COUNT 2.79 X10^6/uL (3.5-5.4); RED CELL DISTRIBUTION WIDTH 14.9 % (11.6-16.5)
[2024-11-29 06:14] LABS: ALANINE AMINOTRANSFERASE < 6 Units/L (12-78); ALBUMIN 1.6 g/dL (3.4-5.0); ALKALINE PHOSPHATASE 86 Units/L (46-116); ASPARTATE AMINO TRANSFERASE 14 Units/L (15-37); BLOOD UREA NITROGEN 49 mg/dL (7-18); CALCIUM 8.3 mg/dL (8.5-10.1); CARBON DIOXIDE 36.9 mmol/L (21-32); CHLORIDE 103 mmol/L (98-107); COR CA(FOR HYPOALB) 10.2 mg/dL (8.5-10.1); COR NA(FOR HYPERGLY) 142 mmol/L (136-145); CREATININE 1.93 mg/dL (0.55-1.02); GLUCOSE 146 mg/dL (65-99); POTASSIUM 4.1 mmol/L (3.5-5.1); SODIUM 141 mmol/L (136-145); TOTAL PROTEIN 5.9 g/dL (6.4-8.2); eGFR NON BLACK RACES 26 (>60)
[2024-11-29 08:52] LABS: ABG BASE EXCESS 12.2 mmol/L (-2.0-2.0)
[2024-11-29 08:53] LABS: ABG ALLEN TEST POS; ABG HCO3 39.6 mmol/L (22-26)
[2024-11-29 08:59] LABS: RETICULOCYTE % 0.84 % (0.8-2.2)
[2024-11-29] MEDS: HEMOCYTE PLUS PO SCH (09:24)
--- NOTE | 2024-11-29 11:54 | VAS ---
EXAM:LEVBILBCHBilateral lower extremity DVT ultrasound examination with Doppler imaging.HISTORY:BLE EDEMA AND PAIN, R/O DVT; . Evaluate for evidence for DVT.Bilateral lower extremity pain and swelling.COMPARISON:NoneTECHNIQUE:Ultras ound of the deep venous vasculature of the bilateral lower extremities was performed.Color and spectral doppler imaging was utilized for the purposes of this examination as well.FINDINGS:The deep veins of both lower extremities are normal in size and configuration. No intraluminal filling defects are seen on grayscale or color flow imaging.The veins compress normally. Doppler waveforms are normal at rest and with augmentation.IMPRESSION:Negative bilateral lower extremity DVT ultrasound exam(s).THIS IS AN ELECTRONICALLY VERIFIED FINAL REPORT11/29/2024 11:51 AM - Electronically signed by Manfred Barker MD
[2024-11-29] MEDS: APRESOLINE TAB 25 MG PO SCH (13:31)
[2024-11-30 06:45] LABS: BASOPHILS # (AUTO) 0.1 X10^3/uL (0.0-0.1); BASOPHILS % (AUTO) 1.2 % (0.2-1.0); EOSINOPHILS # (AUTO) 0.3 x10^3/uL (0.0-0.2); HEMATOCRIT 28.5 % (36.0-47.0); HEMOGLOBIN 9.2 g/dL (12.0-16.0); LYMPHOCYTES # (AUTO) 0.8 X10^3/uL (1.3-2.9); LYMPHOCYTES % (AUTO) 13.5 % (21.0-51.0); MEAN CORPUSCULAR HEMOGLOBIN 28.4 pg (27.0-34.0); MEAN CORPUSCULAR HGB CONC 32.2 g/dL (33.0-35.0); MEAN CORPUSCULAR VOLUME 88.1 fL (80.0-100.0); MEAN PLATELET VOLUME 9.3 fL (7.4-11.0); MONOCYTES # (AUTO) 0.6 x10^3/uL (0.3-0.8); MONOCYTES % (AUTO) 10.9 % (0.0-13.0); NEUTROPHILS # (AUTO) 3.9 x10^3/uL (2.2-4.8); NEUTROPHILS % (AUTO) 69.4 % (42.0-75.0); PLATELET COUNT 231 X10^3/uL (150.0-450.0); RED BLOOD COUNT 3.23 X10^6/uL (3.5-5.4); RED CELL DISTRIBUTION WIDTH 14.8 % (11.6-16.5); WHITE BLOOD COUNT 5.7 X10^3/uL (3.6-10.0)
[2024-11-30 06:49] LABS: ALANINE AMINOTRANSFERASE 7 Units/L (12-78); ALBUMIN 1.8 g/dL (3.4-5.0); ALKALINE PHOSPHATASE 92 Units/L (46-116); ASPARTATE AMINO TRANSFERASE 12 Units/L (15-37); BLOOD UREA NITROGEN 46 mg/dL (7-18); CALCIUM 8.8 mg/dL (8.5-10.1); CARBON DIOXIDE 35.1 mmol/L (21-32); CHLORIDE 102 mmol/L (98-107); COR CA(FOR HYPOALB) 10.6 mg/dL (8.5-10.1); GLUCOSE 98 mg/dL (65-99); MAGNESIUM 1.6 mg/dL (2.0-2.9); POTASSIUM 3.9 mmol/L (3.5-5.1); SODIUM 143 mmol/L (136-145); TOTAL PROTEIN 6.6 g/dL (6.4-8.2); eGFR NON BLACK RACES 31 (>60)
[2024-11-30] MEDS: VITAMIN B-12 PO SCH (09:51)
[2024-11-30] MEDS: VITAMIN B-12 INJ IM STA (09:51)
[2024-11-30] MEDS: LOVENOX INJ 30 MG SYR SC SCH (09:51)
--- NOTE | 2024-11-30 11:21 | NM ---
EXAM:VQ/VENTILLATION & PERFUSION SCHISTORY:elevated d- dimer; 33.0mCi 99mTc DTPA serosol5.3mCI 99mTc MAACOMPARISON:Chest imaging dated: 11/30/2024TECHNIQUE:Following the inhalation of approximately 33 mCi Tc-99m DTPA aerosol, planar lung images were performed in multiple projections. Subsequently, following the intravenous administration of 5.3 mCi Tc-99m MAA, planar lung images were also obtained in multiple projections.FINDINGS:Chest film has the appearance of CHF. There is heterogeneous distribution of DTPA which may represent clumping or small airways disease. There is a subsegmental defect in the left upper lobe and right mid chest. No other persistent unmatched defects are noted. There is fluid along the fissures which may represent pleural effusions..IMPRESSION:Low probability for pulmonary embolus.THIS IS AN ELECTRONICALLY VERIFIED FINAL REPORT11/30/2024 11:08 AM - Electronically signed by Asim Escamilla MD
[2024-11-30] MEDS ORDERED: CONSULT PHARMACY - POTASSIUM & MAGNESIUM XX SCH (20:00)
[2024-11-30] MEDS: MAG-OX TAB PO SCH (21:53)
--- NOTE | 2024-12-01 06:02 | RAD ---
EXAM: CHEST, 1 VIEW HISTORY: POST VQ SCAN; COMPARISON: 11/26/2024 FINDINGS: The cardiomediastinal silhouette is stable. Chronic appearing interstitial changes in the lungs. No acute airspace disease. No pneumothorax or ef fusion. No acute osseous abnormality. IMPRESSION: No acute cardiopulmonary disease. THIS IS AN ELECTRONICALLY VERIFIED FINAL REPORT 12/01/2024 5:59 AM - Electronically signed by Sheldon Pablo MD
[2024-12-01 06:24] LABS: BASOPHILS # (AUTO) 0.1 X10^3/uL (0.0-0.1); BASOPHILS % (AUTO) 1.1 % (0.2-1.0); EOSINOPHILS # (AUTO) 0.3 x10^3/uL (0.0-0.2); EOSINOPHILS % (AUTO) 5.4 % (0.9-2.9); HEMATOCRIT 27.3 % (36.0-47.0); HEMOGLOBIN 8.9 g/dL (12.0-16.0); LYMPHOCYTES # (AUTO) 0.9 X10^3/uL (1.3-2.9); LYMPHOCYTES % (AUTO) 17.7 % (21.0-51.0); MEAN CORPUSCULAR HEMOGLOBIN 28.6 pg (27.0-34.0); MEAN CORPUSCULAR HGB CONC 32.8 g/dL (33.0-35.0); MEAN CORPUSCULAR VOLUME 87.2 fL (80.0-100.0); MONOCYTES # (AUTO) 0.6 x10^3/uL (0.3-0.8); MONOCYTES % (AUTO) 12.4 % (0.0-13.0); NEUTROPHILS # (AUTO) 3.3 x10^3/uL (2.2-4.8); NEUTROPHILS % (AUTO) 63.4 % (42.0-75.0); PLATELET COUNT 222 X10^3/uL (150.0-450.0); RED BLOOD COUNT 3.13 X10^6/uL (3.5-5.4); RED CELL DISTRIBUTION WIDTH 14.6 % (11.6-16.5); WHITE BLOOD COUNT 5.2 X10^3/uL (3.6-10.0)
[2024-12-01 06:42] LABS: ALANINE AMINOTRANSFERASE 7 Units/L (12-78); ALBUMIN 1.8 g/dL (3.4-5.0); ALKALINE PHOSPHATASE 92 Units/L (46-116); ASPARTATE AMINO TRANSFERASE 14 Units/L (15-37); BLOOD UREA NITROGEN 42 mg/dL (7-18); CALCIUM 8.7 mg/dL (8.5-10.1); CARBON DIOXIDE 36.1 mmol/L (21-32); CHLORIDE 102 mmol/L (98-107); COR CA(FOR HYPOALB) 10.5 mg/dL (8.5-10.1); CREATININE 1.49 mg/dL (0.55-1.02); GLUCOSE 100 mg/dL (65-99); MAGNESIUM 1.6 mg/dL (2.0-2.9); POTASSIUM 3.7 mmol/L (3.5-5.1); SODIUM 144 mmol/L (136-145); TOTAL PROTEIN 6.5 g/dL (6.4-8.2); eGFR NON BLACK RACES 36 (>60)
[2024-12-01] MEDS ORDERED: CONSULT PHARMACY - POTASSIUM & MAGNESIUM XX SCH (07:00)
[2024-12-01] MEDS: MAG-OX TAB PO SCH (09:03)
[2024-12-01] MEDS: K-DUR TAB 20 MEQ PO SCH (09:03)
[2024-12-01] MEDS: ALBUMIN HUMAN 25%- 100 ML 100 ML IV ONE (09:03)
[2024-12-02] MEDS: TYLENOL 325 MG TAB PO PRN (04:41)
[2024-12-02 05:09] LABS: BASOPHILS # (AUTO) 0.1 X10^3/uL (0.0-0.1); EOSINOPHILS # (AUTO) 0.3 x10^3/uL (0.0-0.2); EOSINOPHILS % (AUTO) 6.4 % (0.9-2.9); HEMATOCRIT 27.2 % (36.0-47.0); HEMOGLOBIN 8.9 g/dL (12.0-16.0); LYMPHOCYTES % (AUTO) 19.2 % (21.0-51.0); MEAN CORPUSCULAR HEMOGLOBIN 28.7 pg (27.0-34.0); MEAN CORPUSCULAR HGB CONC 32.7 g/dL (33.0-35.0); MEAN CORPUSCULAR VOLUME 87.5 fL (80.0-100.0); MEAN PLATELET VOLUME 8.7 fL (7.4-11.0); MONOCYTES # (AUTO) 0.6 x10^3/uL (0.3-0.8); MONOCYTES % (AUTO) 11.8 % (0.0-13.0); NEUTROPHILS # (AUTO) 3.3 x10^3/uL (2.2-4.8); NEUTROPHILS % (AUTO) 61.6 % (42.0-75.0); PLATELET COUNT 240 X10^3/uL (150.0-450.0); RED BLOOD COUNT 3.11 X10^6/uL (3.5-5.4); RED CELL DISTRIBUTION WIDTH 14.5 % (11.6-16.5); WHITE BLOOD COUNT 5.4 X10^3/uL (3.6-10.0)
[2024-12-02 05:24] LABS: ALANINE AMINOTRANSFERASE 6 Units/L (12-78); ALBUMIN 2.4 g/dL (3.4-5.0); ALKALINE PHOSPHATASE 93 Units/L (46-116); ASPARTATE AMINO TRANSFERASE 9 Units/L (15-37); BLOOD UREA NITROGEN 36 mg/dL (7-18); CALCIUM 8.8 mg/dL (8.5-10.1); CARBON DIOXIDE 38.2 mmol/L (21-32); CHLORIDE 101 mmol/L (98-107); COR CA(FOR HYPOALB) 10.1 mg/dL (8.5-10.1); CREATININE 1.42 mg/dL (0.55-1.02); GLUCOSE 101 mg/dL (65-99); MAGNESIUM 1.5 mg/dL (2.0-2.9); POTASSIUM 3.6 mmol/L (3.5-5.1); SODIUM 143 mmol/L (136-145); TOTAL PROTEIN 7.1 g/dL (6.4-8.2); eGFR NON BLACK RACES 38 (>60)
[2024-12-02] MEDS ORDERED: CONSULT PHARMACY - POTASSIUM & MAGNESIUM XX SCH (10:00)
[2024-12-02] MEDS: MAG-OX TAB PO SCH (11:00)
[2024-12-02] MEDS: K-DUR TAB 20 MEQ PO SCH (11:01)
--- NOTE | 2024-12-02 11:11 | PCM.PROG ---
Progress Note Progress Note for Day of Date of Exam: 12/02/24 Subjective Subjective: Patient seen at bedside, no acute events overnight. She is currently admitted for CHF exacerbation. She remains on IV Lasix. She is currently on 3 L oxygen. She does use 2 L at home. She reports feeling better. Her leg edema has improved. Labs/imaging reviewed: - WBC 5.4 hemoglobin 8.9 potassium 3.6 creatinine 1.42 magnesium 1.5 - Chest x-ray no acute changes - VQ scan negative Plan: Continue telemetry. Wean O2 as tolerated. Continue IV Lasix, monitor daily weight, strict I's and O's. Continue home medications. Replace electrolytes as per protocol. Physical therapy as tolerated. Possible discharge tomorrow. Monitor a.m. labs and imaging. Past Medical Family Social History Allergies: Allergies acetazolamide Allergy (Verified 11/25/24 16:14) Vital Signs and I&O's Vital Signs: Vital Signs Temperature 98.1 F Temperature 98.3 F Pulse Rate [Right Brachial] 71 Pulse Rate [Right Brachial] 69 Respiratory Rate 18 Respiratory Rate 18 Respiratory Rate 19 Respiratory Rate 20 Blood Pressure [Right Arm] 189/80 Blood Pressure [Right Arm] 141/60 O2 Sat by Pulse Oximetry 96 Intake and Output: Intake & Output 11/29/24 11/30/24 12/01/24 12/02/24 23:59 23:59 23:59 23:59 Intake Total 1199 / 1199 193 / 193 2031 Balance 1199 / 1199 193 / 193 2031 Physical Exam Oriented: Normal Eyes: Normal Ear: Normal Nose: Normal Throat: Normal Respiratory: Generalized and Diminished Cardiovascular: Edema Auscultation: Bowel Sounds: Normal Palpation: Normal Tenderness: Normal Skin: Decreased Turgur Musculoskeletal: Back:Lumbar Psychiatric: Normal Mood Description: Calm Affect: Normal Speech Pattern: Clear and Appropriate Laboratory and Diagnostics 12/02/24 04:29 12/02/24 04:29 Labs: Laboratory WBC 5.4 X10^3/uL (3.6-10.0) 12/02/24 04:29 RBC 3.11 X10^6/uL (3.5-5.4) L 12/02/24 04:29 Hgb 8.9 g/dL (12.0-16.0) L 12/02/24 04:29 Hct 27.2 % (36.0-47.0) L 12/02/24 04:29 MCV 87.5 fL (80.0-100.0) 12/02/24 04:29 MCH 28.7 pg (27.0-34.0) 12/02/24 04: MCHC 32.7 g/dL (33.0-35.0) L 12/02/24 04: RDW 14.5 % (11.6-16.5) 12/02/24 04:29 Plt Count 240 X10^3/uL (150.0-450.0) 12/02/24 04: MPV 8.7 fL (7.4-11.0) 12/02/24 04: Neut % (Auto) 61.6 % (42.0-75.0) 12/02/24 04: Lymph % (Auto) 19.2 % (21.0-51.0) L 12/02/24 04:29 [place] % (Auto) 11.8 % (0.0-13.0) 12/02/24 04:29 Eos % (Auto) 6.4 % (0.9-2.9) H 12/02/24 04: Baso % (Auto) 1.0 % (0.2-1.0) 12/02/24 04: Neut # (Auto) 3.3 x10^3/uL (2.2-4.8) 12/02/24 04:29 Lymph # (Auto) 1.0 X10^3/uL (1.3-2.9) L 12/02/24 04:29 [place] # (Auto) 0.6 x10^3/uL (0.3-0.8) 12/02/24 04:29 Eos # (Auto) 0.3 x10^3/uL (0.0-0.2) H 12/02/24 04:29 Baso # (Auto) 0.1 X10^3/uL (0.0-0.1) 12/02/24 04:29 Absolute Nucleated RBC 0.0 /100WBC 12/02/24 04:29 Absolute Retic 0.0237 10^6/uL 11/29/24 05:22 Percent Retic 0.84 % (0.8-2.2) 11/29/24 05:22 D-Dimer 1.93 ug/ml (0.0-0.57) H 11/28/24 10:40 Sample Site Lrad 11/29/24 08:31 ABG pH 7.400 (7.35-7.45) 11/29/24 08:31 ABG pCO2 64.0 mmHg (35.0-45.0) H* 11/29/24 08:31 ABG pO2 60.0 mmHg (80.0-100.0) L 11/29/24 08:31 ABG HCO3 39.6 mmol/L (22-26) H* 11/29/24 08:31 ABG O2 Saturation 91.0 % (90-100) 11/29/24 08:31 ABG Base Excess 12.2 mmol/L (-2.0-2.0) H 11/29/24 08:31 Henok Test Pos 11/29/24 08:31 A-a Gradient 10.0 mmHg 11/29/24 08:31 FiO2 21.0 11/29/24 08:31 Blood Gas Comments Marie well ms 11/29/24 08:31 Sodium 143 mmol/L (136-145) 12/02/24 04:29 Corrected Sodium TNP 12/02/24 04:29 Potassium 3.6 mmol/L (3.5-5.1) 12/02/24 04:29 Chloride 101 mmol/L (98-107) 12/02/24 04:29 Carbon Dioxide 38.2 mmol/L (21-32) H 12/02/24 04:29 BUN 36 mg/dL (7-18) H 12/02/24 04:29 Creatinine 1.42 mg/dL (0.55-1.02) H 12/02/24 04:29 Est GFR (MDRD) Af Amer 45 (>60) L 12/02/24 04:29 Est GFR (MDRD) Non-Af 38 (>60) L 12/02/24 04:29 Glucose 101 mg/dL (65-99) H 12/02/24 04:29 POC Glucose (mg/dL) 114 mg/dL (65-99) H 11/26/24 12:06 Uric Acid 7.3 mg/dL (2.6-6.0) H 11/25/24 17:11 Calcium 8.8 mg/dL (8.5-10.1) 12/02/24 04:29 Corrected Calcium 10.1 mg/dL (8.5-10.1) 12/02/24 04:29 Magnesium 1.5 mg/dL (2.0-2.9) L 12/02/24 04:29 Iron 17 ug/dL (50-175) L 11/29/24 09:05 TIBC 194 ug/dL (250-450) L 11/29/24 09:05 Transferrin 171 mg/dL (202-364) L 11/29/24 09:05 Ferritin 90 ng/mL (8-252) 11/29/24 09:05 Total Bilirubin 0.20 mg/dL (0.2-1.0) 12/02/24 04:29 AST 9 Units/L (15-37) L 12/02/24 04:29 ALT 6 Units/L (12-78) L 12/02/24 04:29 Alkaline Phosphatase 93 Units/L (46-116) 12/02/24 04:29 Creatine Kinase 50 Units/L (26-192) 11/25/24 17:11 Troponin I High Sens 21.1 ng/L (4.0-60.0) 11/28/24 22:15 B-Natriuretic Peptide 563 pg/mL (0-79) H 11/29/24 05:22 Total Protein 7.1 g/dL (6.4-8.2) 12/02/24 04:29 Albumin 2.4 g/dL (3.4-5.0) L 12/02/24 04:29 Globulin 4.7 g/dL (2.5-4.5) H 12/02/24 04:29 Albumin/Globulin Ratio 0.5 Ratio (1.1-2.1) L 12/02/24 04:29 Vitamin B12 160 pg/mL (193-986) L 11/29/24 09:05 Folate 5.3 ng/mL (>8.6) L 11/29/24 09:05 Specimen Type Catherized urine 11/25/24 16:48 Urine Color Yellow (YELLOW) 11/25/24 16:48 Urine Appearance Clear (CLEAR) 11/25/24 16:48 Urine pH 5.0 (5.0 - 8.0) 11/25/24 16:48 Ur Specific [place] 1.015 (1.000-1.030) 11/25/24 16:48 Urine Protein 2+ (NEGATIVE) 11/25/24 16:48 Urine Glucose (UA) Negative (NEGATIVE) 11/25/24 16:48 Urine Ketones Negative (NEGATIVE) 11/25/24 16:48 Urine Blood Negative (NEGATIVE) 11/25/24 16:48 Urine Nitrite Negative (NEGATIVE) 11/25/24 16:48 Urine Bilirubin Negative (NEGATIVE) 11/25/24 16:48 Urine Urobilinogen Normal (NORMAL) 11/25/24 16:48 Ur Leukocyte Esterase Negative (NEGATIVE) 11/25/24 16:48 Urine RBC None seen /HPF (0-3) 11/25/24 16:48 Urine WBC None seen /HPF (0-5) 11/25/24 16:48 Ur Squamous Epith Cells Rare /HPF (NEGATIVE) 11/25/24 16:48 Urine Bacteria Negative /HPF (NEGATIVE) 11/25/24 16:48 Ur Culture Indicated? No/not indicated 11/25/24 16:48 Stl Occult Blood (IFOB) Negative (NEGATIVE) 11/29/24 15:35 Plan (1) CHF (congestive heart failure): Status: Acute Qualifiers: Heart failure chronicity: acute on chronic Heart failure type: combined systolic and diastolic Qualified Code(s): I50.43 - Acute on chronic combined systolic (congestive) and diastolic (congestive) heart failure (2) Bilateral edema of lower extremity: Status: Acute (3) CKD (chronic kidney disease): Status: Chronic (4) Hypertension: Status: Chronic Qualifiers: Hypertension type: primary hypertension Qualified Code(s): I10 - Essential (primary) hypertension (5) Hypomagnesemia: Status: Acute
[2024-12-03 06:19] LABS: BASOPHILS # (AUTO) 0.1 X10^3/uL (0.0-0.1); EOSINOPHILS # (AUTO) 0.4 x10^3/uL (0.0-0.2); HEMOGLOBIN 9.3 g/dL (12.0-16.0); LYMPHOCYTES # (AUTO) 1.1 X10^3/uL (1.3-2.9); MEAN CORPUSCULAR HEMOGLOBIN 28.6 pg (27.0-34.0); MEAN PLATELET VOLUME 8.9 fL (7.4-11.0); NEUTROPHILS # (AUTO) 3.9 x10^3/uL (2.2-4.8); RED BLOOD COUNT 3.25 X10^6/uL (3.5-5.4); RED CELL DISTRIBUTION WIDTH 14.7 % (11.6-16.5)
[2024-12-03 06:30] LABS: ALANINE AMINOTRANSFERASE < 6 Units/L (12-78); ALBUMIN 2.2 g/dL (3.4-5.0); ALKALINE PHOSPHATASE 100 Units/L (46-116); ASPARTATE AMINO TRANSFERASE 17 Units/L (15-37); BLOOD UREA NITROGEN 33 mg/dL (7-18); CALCIUM 8.7 mg/dL (8.5-10.1); CARBON DIOXIDE 36.8 mmol/L (21-32); CHLORIDE 101 mmol/L (98-107); COR CA(FOR HYPOALB) 10.1 mg/dL (8.5-10.1); GLUCOSE 101 mg/dL (65-99); MAGNESIUM 1.8 mg/dL (2.0-2.9); POTASSIUM 3.9 mmol/L (3.5-5.1); SODIUM 143 mmol/L (136-145); TOTAL PROTEIN 6.9 g/dL (6.4-8.2); eGFR NON BLACK RACES 35 (>60)
[2024-12-03 06:32] LABS: BASOPHILS % (AUTO) 1.1 % (0.2-1.0); HEMATOCRIT 28.4 % (36.0-47.0); LYMPHOCYTES % (AUTO) 17.6 % (21.0-51.0); MEAN CORPUSCULAR HGB CONC 32.7 g/dL (33.0-35.0); MEAN CORPUSCULAR VOLUME 87.6 fL (80.0-100.0); MONOCYTES # (AUTO) 0.8 x10^3/uL (0.3-0.8); NEUTROPHILS % (AUTO) 62.3 % (42.0-75.0); PLATELET COUNT 252 X10^3/uL (150.0-450.0)
[2024-12-03 06:44] LABS: PLATELET MORPHOLOGY COMMENT NORMAL (NORMAL)
--- NOTE | 2024-12-03 11:56 | PCM.PROG ---
Progress Note Progress Note for Day of Date of Exam: 12/03/24 Subjective Subjective: Patient seen at bedside, no acute events overnight. She is currently admitted for CHF exacerbation. She remains on IV Lasix. She is currently on 2.5 L oxygen. She does use home O2 She reports feeling better. Her leg edema has improved. She reports having trouble swallowing her medicati ons and food. She had a EGD done last month by Dr De La O which showed stricture, hiatal hernia and gastritis. She states she has had EGDs in the past and after dilation she is able to swallow well but after this recent EGD, she continues to have that problem. Labs/imaging reviewed: - WBC 7 hemoglobin 9.3 potassium 3.9 creatinine 1.50 magnesium 1.8 - Chest x-ray no acute changes - VQ scan negative - EGD 11/01/2024 reviewed Plan: Continue telemetry. Wean O2 as tolerated. Continue IV Lasix, monitor daily weight, strict I's and O's. Continue home medications. Replace electrolytes as per protocol. Continue Protonix and Carafate. Consider surgery consult if having worsening symptoms. Physical therapy as tolerated. Monitor a.m. labs and imaging. Past Medical Family Social History Allergies: Allergies acetazolamide Allergy (Verified 11/25/24 16:14) Vital Signs and I&O's Vital Signs: Vital Signs Temperature 97.4 F Temperature 97.6 F Pulse Rate [Left Brachial] 60 Pulse Rate [Right Brachial] 80 Respiratory Rate 20 Respiratory Rate 17 Blood Pressure [Right Arm] 128/84 Blood Pressure [Left Arm] 150/73 O2 Sat by Pulse Oximetry 98 O2 Sat by Pulse Oximetry 100 Intake and Output: Intake & Output 11/30/24 12/01/24 12/02/24 12/03/24 23:59 23:59 23:59 23:59 Intake Total 2031 1090 / 1090 100 / 100 Balance 2031 1090 / 1090 100 / 100 Physical Exam Oriented: Normal Eyes: Normal Ear: Normal Nose: Normal Throat: Normal Respiratory: Generalized and Diminished Cardiovascular: Edema Auscultation: Bowel Sounds: Normal Palpation: Normal Tenderness: Normal Skin: Decreased Turgur Musculoskeletal: Back:Lumbar Psychiatric: Normal Mood Description: Calm Affect: Normal Speech Pattern: Clear and Appropriate Laboratory and Diagnostics 12/03/24 05:50 12/03/24 05:50 Labs: Laboratory WBC 7.0 X10^3/uL (3.6-10.0) 12/03/24 05:50 RBC 3.25 X10^6/uL (3.5-5.4) L 12/03/24 05:50 Hgb 9.3 g/dL (12.0-16.0) L 12/03/24 05:50 Hct 28.4 % (36.0-47.0) L 12/03/24 05:50 MCV 87.6 fL (80.0-100.0) 12/03/24 05:50 MCH 28.6 pg (27.0-34.0) 12/03/24 05:50 MCHC 32.7 g/dL (33.0-35.0) L 12/03/24 05:50 RDW 14.7 % (11.6-16.5) 12/03/24 05:50 Plt Count 252 X10^3/uL (150.0-450.0) 12/03/24 05:50 Plt Count Comment Adequate (ADEQUATE) 12/03/24 05:50 MPV 8.9 fL (7.4-11.0) 12/03/24 05:50 Neut % (Auto) 62.3 % (42.0-75.0) 12/03/24 05:50 Lymph % (Auto) 17.6 % (21.0-51.0) L 12/03/24 05:50 [place] % (Auto) 12.0 % (0.0-13.0) 12/03/24 05:50 Eos % (Auto) 7.0 % (0.9-2.9) H 12/03/24 05:50 Baso % (Auto) 1.1 % (0.2-1.0) H 12/03/24 05:50 Neut # (Auto) 3.9 x10^3/uL (2.2-4.8) 12/03/24 05:50 Lymph # (Auto) 1.1 X10^3/uL (1.3-2.9) L 12/03/24 05:50 [place] # (Auto) 0.8 x10^3/uL (0.3-0.8) 12/03/24 05:50 Eos # (Auto) 0.4 x10^3/uL (0.0-0.2) H 12/03/24 05:50 Baso # (Auto) 0.1 X10^3/uL (0.0-0.1) 12/03/24 05:50 Absolute Nucleated RBC 0.3 /100WBC 12/03/24 05:50 Plt Morphology Comment Normal (NORMAL) 12/03/24 05:50 RBC Morphology Normal (NORMAL) 12/03/24 05:50 Absolute Retic 0.0237 10^6/uL 11/29/24 05:22 Percent Retic 0.84 % (0.8-2.2) 11/29/24 05:22 D-Dimer 1.93 ug/ml (0.0-0.57) H 11/28/24 10:40 Sample Site Lrad 11/29/24 08:31 ABG pH 7.400 (7.35-7.45) 11/29/24 08:31 ABG pCO2 64.0 mmHg (35.0-45.0) H* 11/29/24 08:31 ABG pO2 60.0 mmHg (80.0-100.0) L 11/29/24 08:31 ABG HCO3 39.6 mmol/L (22-26) H* 11/29/24 08:31 ABG O2 Saturation 91.0 % (90-100) 11/29/24 08:31 ABG Base Excess 12.2 mmol/L (-2.0-2.0) H 11/29/24 08:31 Henok Test Pos 11/29/24 08:31 A-a Gradient 10.0 mmHg 11/29/24 08:31 FiO2 21.0 11/29/24 08:31 Blood Gas Comments Marie well ms 11/29/24 08:31 Sodium 143 mmol/L (136-145) 12/03/24 05:50 Corrected Sodium TNP 12/03/24 05:50 Potassium 3.9 mmol/L (3.5-5.1) 12/03/24 05:50 Chloride 101 mmol/L (98-107) 12/03/24 05:50 Carbon Dioxide 36.8 mmol/L (21-32) H 12/03/24 05:50 BUN 33 mg/dL (7-18) H 12/03/24 05:50 Creatinine 1.50 mg/dL (0.55-1.02) H 12/03/24 05:50 Est GFR (MDRD) Af Amer 43 (>60) L 12/03/24 05:50 Est GFR (MDRD) Non-Af 35 (>60) L 12/03/24 05:50 Glucose 101 mg/dL (65-99) H 12/03/24 05:50 POC Glucose (mg/dL) 114 mg/dL (65-99) H 11/26/24 12:06 Uric Acid 7.3 mg/dL (2.6-6.0) H 11/25/24 17:11 Calcium 8.7 mg/dL (8.5-10.1) 12/03/24 05:50 Corrected Calcium 10.1 mg/dL (8.5-10.1) 12/03/24 05:50 Magnesium 1.8 mg/dL (2.0-2.9) L 12/03/24 05:50 Iron 17 ug/dL (50-175) L 11/29/24 09:05 TIBC 194 ug/dL (250-450) L 11/29/24 09:05 Transferrin 171 mg/dL (202-364) L 11/29/24 09:05 Ferritin 90 ng/mL (8-252) 11/29/24 09:05 Total Bilirubin 0.20 mg/dL (0.2-1.0) 12/03/24 05:50 AST 17 Units/L (15-37) 12/03/24 05:50 ALT < 6 Units/L (12-78) L 12/03/24 05:50 Alkaline Phosphatase 100 Units/L (46-116) 12/03/24 05:50 Creatine Kinase 50 Units/L (26-192) 11/25/24 17:11 Troponin I High Sens 21.1 ng/L (4.0-60.0) 11/28/24 22:15 B-Natriuretic Peptide 563 pg/mL (0-79) H 11/29/24 05:22 Total Protein 6.9 g/dL (6.4-8.2) 12/03/24 05:50 Albumin 2.2 g/dL (3.4-5.0) L 12/03/24 05:50 Globulin 4.7 g/dL (2.5-4.5) H 12/03/24 05:50 Albumin/Globulin Ratio 0.5 Ratio (1.1-2.1) L 12/03/24 05:50 Vitamin B12 160 pg/mL (193-986) L 11/29/24 09:05 Folate 5.3 ng/mL (>8.6) L 11/29/24 09:05 Specimen Type Catherized urine 11/25/24 16:48 Urine Color Yellow (YELLOW) 11/25/24 16:48 Urine Appearance Clear (CLEAR) 11/25/24 16:48 Urine pH 5.0 (5.0 - 8.0) 11/25/24 16:48 Ur Specific [place] 1.015 (1.000-1.030) 11/25/24 16:48 Urine Protein 2+ (NEGATIVE) 11/25/24 16:48 Urine Glucose (UA) Negative (NEGATIVE) 11/25/24 16:48 Urine Ketones Negative (NEGATIVE) 11/25/24 16:48 Urine Blood Negative (NEGATIVE) 11/25/24 16:48 Urine Nitrite Negative (NEGATIVE) 11/25/24 16:48 Urine Bilirubin Negative (NEGATIVE) 11/25/24 16:48 Urine Urobilinogen Normal (NORMAL) 11/25/24 16:48 Ur Leukocyte Esterase Negative (NEGATIVE) 11/25/24 16:48 Urine RBC None seen /HPF (0-3) 11/25/24 16:48 Urine WBC None seen /HPF (0-5) 11/25/24 16:48 Ur Squamous Epith Cells Rare /HPF (NEGATIVE) 11/25/24 16:48 Urine Bacteria Negative /HPF (NEGATIVE) 11/25/24 16:48 Ur Culture Indicated? No/not indicated 11/25/24 16:48 Stl Occult Blood (IFOB) Negative (NEGATIVE) 11/29/24 15:35 Plan (1) CHF (congestive heart failure): Status: Acute Qualifiers: Heart failure chronicity: acute on chronic Heart failure type: combined systolic and diastolic Qualified Code(s): I50.43 - Acute on chronic combined systolic (congestive) and diastolic (congestive) heart failure (2) Dysphagia: Status: Chronic Qualifiers: Dysphagia type: unspecified Qualified Code(s): R13.10 - Dysphagia, unsp ecified (3) Bilateral edema of lower extremity: Status: Acute (4) CKD (chronic kidney disease): Status: Chronic (5) Hypertension: Status: Chronic Qualifiers: Hypertension type: primary hypertension Qualified Code(s): I10 - Essential (primary) hypertension (6) Hypomagnesemia: Status: Acute
[2024-12-03] MEDS: CATAPRES TAB 0.1 MG PO ONE (15:25)
[2024-12-04] MEDS: CATAPRES TAB 0.1 MG PO ONE ×2 (03:51→12:30)
[2024-12-04 05:43] LABS: BASOPHILS # (AUTO) 0.1 X10^3/uL (0.0-0.1); EOSINOPHILS # (AUTO) 0.3 x10^3/uL (0.0-0.2); HEMATOCRIT 27.9 % (36.0-47.0); LYMPHOCYTES # (AUTO) 0.9 X10^3/uL (1.3-2.9); LYMPHOCYTES % (AUTO) 19.1 % (21.0-51.0); MEAN CORPUSCULAR HEMOGLOBIN 28.3 pg (27.0-34.0); MEAN CORPUSCULAR HGB CONC 32.3 g/dL (33.0-35.0); MEAN CORPUSCULAR VOLUME 87.6 fL (80.0-100.0); MEAN PLATELET VOLUME 8.9 fL (7.4-11.0); MONOCYTES # (AUTO) 0.6 x10^3/uL (0.3-0.8); MONOCYTES % (AUTO) 11.7 % (0.0-13.0); NEUTROPHILS # (AUTO) 2.9 x10^3/uL (2.2-4.8); NEUTROPHILS % (AUTO) 60.2 % (42.0-75.0); PLATELET COUNT 250 X10^3/uL (150.0-450.0); RED BLOOD COUNT 3.19 X10^6/uL (3.5-5.4); RED CELL DISTRIBUTION WIDTH 14.6 % (11.6-16.5); WHITE BLOOD COUNT 4.9 X10^3/uL (3.6-10.0)
[2024-12-04 06:03] LABS: ALANINE AMINOTRANSFERASE 6 Units/L (12-78); ALBUMIN 2.2 g/dL (3.4-5.0); ALKALINE PHOSPHATASE 97 Units/L (46-116); ASPARTATE AMINO TRANSFERASE 16 Units/L (15-37); BLOOD UREA NITROGEN 32 mg/dL (7-18); CALCIUM 8.7 mg/dL (8.5-10.1); CARBON DIOXIDE 38.5 mmol/L (21-32); CHLORIDE 99 mmol/L (98-107); COR CA(FOR HYPOALB) 10.1 mg/dL (8.5-10.1); CREATININE 1.38 mg/dL (0.55-1.02); GLUCOSE 93 mg/dL (65-99); MAGNESIUM 1.9 mg/dL (2.0-2.9); POTASSIUM 3.7 mmol/L (3.5-5.1); SODIUM 144 mmol/L (136-145); TOTAL PROTEIN 6.6 g/dL (6.4-8.2); eGFR NON BLACK RACES 39 (>60)
[2024-12-04] MEDS ORDERED: CONSULT PHARMACY - POTASSIUM & MAGNESIUM XX SCH (08:00)
[2024-12-04] MEDS: MAG-OX TAB PO SCH (08:55)
[2024-12-04] MEDS: K-DUR TAB 20 MEQ PO SCH (08:56)
[2024-12-05 06:20] LABS: BASOPHILS # (AUTO) 0.1 X10^3/uL (0.0-0.1); BASOPHILS % (AUTO) 1.3 % (0.2-1.0); EOSINOPHILS # (AUTO) 0.3 x10^3/uL (0.0-0.2); EOSINOPHILS % (AUTO) 6.2 % (0.9-2.9); HEMATOCRIT 27.8 % (36.0-47.0); LYMPHOCYTES % (AUTO) 19.4 % (21.0-51.0); MEAN CORPUSCULAR HEMOGLOBIN 28.4 pg (27.0-34.0); MEAN CORPUSCULAR HGB CONC 32.5 g/dL (33.0-35.0); MEAN CORPUSCULAR VOLUME 87.4 fL (80.0-100.0); MEAN PLATELET VOLUME 8.7 fL (7.4-11.0); MONOCYTES # (AUTO) 0.7 x10^3/uL (0.3-0.8); MONOCYTES % (AUTO) 12.5 % (0.0-13.0); NEUTROPHILS # (AUTO) 3.2 x10^3/uL (2.2-4.8); NEUTROPHILS % (AUTO) 60.6 % (42.0-75.0); PLATELET COUNT 245 X10^3/uL (150.0-450.0); RED BLOOD COUNT 3.18 X10^6/uL (3.5-5.4); RED CELL DISTRIBUTION WIDTH 14.6 % (11.6-16.5); WHITE BLOOD COUNT 5.3 X10^3/uL (3.6-10.0)
[2024-12-05 06:29] LABS: ALANINE AMINOTRANSFERASE 8 Units/L (12-78); ALBUMIN 2.2 g/dL (3.4-5.0); ALKALINE PHOSPHATASE 108 Units/L (46-116); ASPARTATE AMINO TRANSFERASE 14 Units/L (15-37); BLOOD UREA NITROGEN 33 mg/dL (7-18); CALCIUM 8.5 mg/dL (8.5-10.1); CHLORIDE 99 mmol/L (98-107); COR CA(FOR HYPOALB) 9.9 mg/dL (8.5-10.1); CREATININE 1.57 mg/dL (0.55-1.02); GLUCOSE 101 mg/dL (65-99); MAGNESIUM 2.1 mg/dL (2.0-2.9); POTASSIUM 3.9 mmol/L (3.5-5.1); SODIUM 142 mmol/L (136-145); TOTAL PROTEIN 6.7 g/dL (6.4-8.2); eGFR NON BLACK RACES 33 (>60)
[2024-12-05 06:41] LABS: CARBON DIOXIDE 39.5 mmol/L (21-32)
[2024-12-05 15:33] VITALS: BP 147/66; PULSE 58; RESP 16; TEMP 97.7; O2SAT 95
== END 2024-12-05 13:45 | disposition home health service (06) | DRG 292 ==
LOC: MED/SURG 16:02 → ER 16:02 → MED/SURG 21:17
PROVIDERS: ADMIT Internal Medicine; ATTEND Internal Medicine
DX: R00.1 Bradycardia, unspecified; I73.89 Other specified peripheral vascular diseases; Z59.86 Financial insecurity; R26.89 Other abnormalities of gait and mobility; E66.01 Morbid (severe) obesity due to excess calories; E03.8 Other specified hypothyroidism; I27.20 Pulmonary hypertension, unspecified; R53.1 Weakness; R07.89 Other chest pain; D63.1 Anemia in chronic kidney disease; I44.7 Left bundle-branch block, unspecified; Z68.34 Body mass index [BMI] 34.0-34.9, adult; K21.9 Gastro-esophageal reflux disease without esophagitis; R60.0 Localized edema; Z99.81 Dependence on supplemental oxygen; R06.02 Shortness of breath; E83.42 Hypomagnesemia; E88.09 Other disorders of plasma-protein metabolism, not elsewhere classified; I50.43 Acute on chronic combined systolic (congestive) and diastolic (congestive) heart failure; R13.11 Dysphagia, oral phase; N17.8 Other acute kidney failure; I13.0 Hypertensive heart and chronic kidney disease with heart failure and stage 1 through stage 4 chronic kidney disease, or unspecified chronic kidney disease; R79.1 Abnormal coagulation profile; J44.9 Chronic obstructive pulmonary disease, unspecified; Z66 Do not resuscitate; R94.31 Abnormal electrocardiogram [ECG] [EKG]; E78.5 Hyperlipidemia, unspecified